=== PATIENT | male | born 1975 | race Caucasian/White ===

== ENCOUNTER 2018-04-21 17:49 | Inpatient (IN) | payer SELFPAY ==
[~2018-04-21] VITALS: Ht 182.9 cm; Wt 161.3 kg
--- NOTE | 2018-04-21 17:51 | ED.ADGEN ---
Past History Past Medical History: A-Fib, Anxiety, CAD, CHF, COPD, Depression, Diabetes, Hypertension Past Surgical History: Other Smoking: Cigarettes Adult General Chief Complaint Chief Complaint ".. I ve been off my meds about a week.. I have CHF.. and I ve gotten really short of breath.. I just moved down here to start my life over after 22 yrs. of marriage.. and now .. ".. .I really fluid over loaded..." HPI HPI Patient is a 42 year old male who presents with above hx and complaints dyspnea , edema, fatigue. Pt. has long hx of CHF, DM, HTN, COPD, continue tobacco use. Pt. recent moved to [facility] from [facility]. Pt. states he is unable to walk across the room with out marked dyspnea. Pt. has had not followed up with physician since arrival to [facility]. No specific ill contacts. No hx immunosuppression. Review of Systems Review of Systems Constitutional: Denies fever or chills [] Eyes: Denies change in visual acuity, redness, or eye pain [] HENT: Denies nasal congestion or sore throat [] Respiratory: Complaints cough and shortness of breath [] Cardiovascular: No additional information not addressed in HPI [] GI: Denies abdominal pain, nausea, vomiting, bloody stools or diarrhea [] : Denies dysuria or hematuria [] Musculoskeletal: Denies back pain or joint pain [] Integument: Denies rash or skin lesions [] Neurologic: Denies headache, focal weakness or sensory changes [] Endocrine: Denies polyuria or polydipsia [] All other systems were reviewed and found to be within normal limits, except as documented in this note. Family History Family History DM Current Medications Current Medications Current Medications Medications (Trade) Dose Ordered Sig/Mert Start Time Stop Time Status Last Admin Dose Admin Albuterol/ Ipratropium (Duoneb) 3 ml STK-MED ONCE 04/21/18 19:06 04/21/18 19:07 DC Aspirin (Children'S Aspirin) 324 mg 1X ONCE 04/21/18 18:00 04/21/18 18:03 DC 04/21/18 18:20 324 MG Enoxaparin Sodium (Lovenox 150mg Syringe) 150 mg Q12H 04/21/18 18:45 04/21/18 20:26 DC 04/21/18 18:55 150 MG Furosemide (Lasix) 40 mg 1X ONCE 04/21/18 18:00 04/21/18 18:03 DC 04/21/18 18:20 40 MG Metoprolol Tartrate (Lopressor Vial) 5 mg 1X ONCE 04/21/18 18:45 04/21/18 18:46 DC 04/21/18 18:53 5 MG See Med. List- for home meds. Allergies Allergies Allergies Coded Allergies Type Severity Reaction Last Updated Verified ampicillin Allergy Intermediate 04/21/18 Yes ketorolac Allergy Intermediate 04/21/18 Yes PCN- rash, Toradol Physical Exam Physical Exam Constitutional: Moderately acute distress, non-toxic appearance. [] HENT: Normocephalic, atraumatic, bilateral external ears normal, oropharynx moist, no oral exudates, nose normal. [] Eyes: PERRLA, EOMI, conjunctiva normal, no discharge. [] Neck: Normal range of motion, no tenderness, supple, no stridor. [] JVD at setting position Cardiovascular:Tachycardia Heart rate, ill regular rate and rhythm, no murmur [ ]PMI to Lt. Lungs & Thorax: Bilateral breath sounds equal at apex with scattered wheezes and basilar crackles on auscultation [] Abdomen: Bowel sounds normal, soft, no tenderness, no masses, no pulsatile masses. [] Obese. Scar. Skin: Warm, dry, no erythema, no rash. Leg scars. -burn scaring. Back: No tenderness, no CVA tenderness. [] Extremities: No tenderness, no cyanosis, no clubbing, ROM intact, 2+ edema mid kaminski. [] Scar 's on legs from skaggs age 5. Neurologic: Alert and oriented X 3, normal motor function, normal sensory function, no focal deficits noted. [] Psychologic: Affect anxious, judgement normal, mood normal. [] Current Patient Data Vital Signs Vital Signs Date Time Temp Pulse Resp B/P (MAP) Pulse Ox O2 Delivery O2 Flow Rate FiO2 04/21/18 20:05 148 28 178/119 (138) 95 Room Air Lab Results Laboratory Tests Test 04/21/18 18:05 04/21/18 19:00 White Blood Count 7.8 x10^3/uL (4.0-11.0) Red Blood Count 4.63 x10^6/uL (4.30-5.70) Hemoglobin 11.7 g/dL (13.0-17.5) L Hematocrit 36.5 % (39.0-53.0) L Mean Corpuscular Volume 79 fL (79-100) Mean Corpuscular Hemoglobin 25 pg (25-35) Mean Corpuscular Hemoglobin Concent 32 g/dL (31-37) Red Cell Distribution Width 18.7 % (11.5-14.5) H Platelet Count 198 x10^3/uL (140-400) Neutrophils (%) (Auto) 71 % (31-73) Lymphocytes (%) (Auto) 19 % (24-48) L Monocytes (%) (Auto) 8 % (0-9) Eosinophils (%) (Auto) 1 % (0-3) Basophils (%) (Auto) 1 % (0-3) Neutrophils # (Auto) 5.5 x10^3uL (1.8-7.7) Lymphocytes # (Auto) 1.5 x10^3/uL (1.0-4.8) Monocytes # (Auto) 0.6 x10^3/uL (0.0-1.1) Eosinophils # (Auto) 0.1 x10^3/uL (0.0-0.7) Basophils # (Auto) 0.0 x10^3/uL (0.0-0.2) Prothrombin Time 12.7 SEC (9.4-11.4) H Prothrombin Time INR 1.2 (0.9-1.1) H PTT 26 SEC (23-33) D-Dimer (Juana) 0.96 mg/L (0.00-0.50) H Sodium Level 137 mmol/L (136-145) Potassium Level 3.7 mmol/L (3.5-5.1) Chloride Level 102 mmol/L (98-107) Carbon Dioxide Level 31 mmol/L (21-32) Anion Gap 4 (6-14) L Blood Urea Nitrogen 12 mg/dL (8-26) Creatinine 1.0 mg/dL (0.7-1.3) Estimated GFR (Cockcroft-Gault) 81.2 Glucose Level 223 mg/dL (70-99) H Calcium Level 8.1 mg/dL (8.5-10.1) L Magnesium Level 1.8 mg/dL (1.8-2.4) Total Bilirubin 0.7 mg/dL (0.2-1.0) Direct Bilirubin 0.2 mg/dL (0.0-0.2) Aspartate Amino Transferase (AST) 20 U/L (15-37) Alanine Aminotransferase (ALT) 14 U/L (16-63) L Alkaline Phosphatase 90 U/L (46-116) Creatine Kinase 46 U/L (39-308) Creatine Kinase MB (Mass) 1.7 ng/mL (0.0-3.6) Creatine Kinase MB Relative Index 3.7 % (0-4) Troponin I Quantitative 0.023 ng/mL (0-0.055) ZF-Sxo-Y-Type Natriuretic Peptide 3070 pg/mL (0-124) H Total Protein 6.9 g/dL (6.4-8.2) Albumin 2.9 g/dL (3.4-5.0) L Lipase 54 U/L (73-393) L Urine Collection Type Unknown Urine Color Yellow Urine Clarity Clear Urine pH 5.5 Urine Specific [place] 1.010 Urine Protein Neg (NEG-TRACE) Urine Glucose (UA) Neg mg/dL (NEG) Urine Ketones (Stick) Neg mg/dL (NEG) Urine Blood Neg (NEG) Urine Nitrite Neg (NEG) Urine Bilirubin Neg (NEG) Urine Urobilinogen Dipstick 0.2 mg/dL (0.2 mg/dL) Urine Leukocyte Esterase Neg (NEG) Urine RBC 1-2 /HPF (0-2) Urine WBC 1-4 /HPF (0-4) Urine Squamous Epithelial Cells Mod /LPF Urine Bacteria 0 /HPF (0-FEW) Urine Hyaline Casts Mod /HPF Urine Mucus Mod /LPF Urine Opiates Screen Neg (NEG) Urine Methadone Screen Neg (NEG) Urine Barbiturates Neg (NEG) Urine Phencyclidine Screen Neg (NEG) Urine Amphetamine/Methamphetamine Neg (NEG) Urine Benzodiazepines Screen Neg (NEG) Urine Cocaine Screen Neg (NEG) Urine Cannabinoids Screen Pos (NEG) Urine Ethyl Alcohol Neg (NEG) EKG EKG My interpretation of EKG shows Afib with rapid Vent. response a Vent. rate of 171. [] Radiology/Procedures Radiology/Procedures My interpretation of chest x-ray shows cardiomegaly. Increased cephalization. Consistent with CHF.[] Course & Med Decision Making Course & Med Decision Making Pertinent Labs and Imaging studies reviewed. (See chart for details) Discussed presentation, testing and tx. plan with Dr. Jasso- will admit for further tx. and evaluation [] Final Impression Final Impression 1. Dyspnea[] 2. Hx CHF- BNP 3070 3. Hx. DM-223 4. Hx. Depression 5. Hx. HTN- accelerated 6. Tobacco Use 7. Afib- with rapid Vent. Response 8. Anemia- 11.7 9. Malnutrition Alb- 2.9 10. COPD exacerbation 11. Elevated D-dimer Dragon Disclaimer Dragon Disclaimer This electronic medical record was generated, in whole or in part, using a voice recognition dictation system. DAMARIS VELÁSQUEZ MD Apr 21, 2018 17:51
[2018-04-21] MEDS ORDERED: FUROSEMIDE 40 MG/4 ML VIAL IVP ONE (18:00)
[2018-04-21] MEDS ORDERED: ASPIRIN 81 MG TAB.CHEW PO ONE (18:00)
[2018-04-21 18:30] LABS: BASO % 1 % (0-3); EOS # 0.1 x10^3/uL (0.0-0.7); EOS % 1 % (0-3); HEMATOCRIT 36.5 % (39.0-53.0); HEMOGLOBIN 11.7 g/dL (13.0-17.5); LYMPH # 1.5 x10^3/uL (1.0-4.8); LYMPH % 19 % (24-48); MEAN CORPUSCULAR HEMOGLOBIN 25 pg (25-35); MEAN CORPUSCULAR HGB CONC 32 g/dL (31-37); MEAN CORPUSCULAR VOLUME 79 fL (79-100); MONO # 0.6 x10^3/uL (0.0-1.1); MONO % 8 % (0-9); NEUT # 5.5 x10^3uL (1.8-7.7); NEUT % 71 % (31-73); PLATELET COUNT 198 x10^3/uL (140-400); RED BLOOD COUNT 4.63 x10^6/uL (4.30-5.70); RED CELL DISTRIBUTION WIDTH 18.7 % (11.5-14.5); WHITE BLOOD COUNT 7.8 x10^3/uL (4.0-11.0)
--- NOTE | 2018-04-21 18:34 | EKG ---
[address] [address] Test Date: 2018-04-21 Test Time: 18:29:24 Pat Name: OLVIN PIERRE Department: Room: Gender: M Ssis Architect: [facility] : 1975 Requested By: DAMARIS VELÁSQUEZ Order Number: [id number] Reading MD: Lars Ascencio MD Measurements Intervals [place] Rate: 171 P: VT: QRS: -26 QRSD: 98 T: 125 QT: 292 QTc: 495 Interpretive Statements NON-SPECIFIC ST/T CHANGES ATRIAL FIBRILLATION WITH RVR Electronically Signed On 04-23-2018 16:09:28 CDT by Lars Ascencio MD
[2018-04-21] MEDS ORDERED: METOPROLOL TARTRATE 5 MG/5 ML VIAL. IV ONE ×2 (18:45→20:30)
[2018-04-21] MEDS ORDERED: ENOXAPARIN ** NOTE DOSE ** SYRINGE SQ SCH (18:45)
[2018-04-21 18:56] LABS: ALBUMIN 2.9 g/dL (3.4-5.0); CALCIUM 8.1 mg/dL (8.5-10.1); DIRECT BILIRUBIN 0.2 mg/dL (0.0-0.2); GFR 81.2; MAGNESIUM 1.8 mg/dL (1.8-2.4); POTASSIUM 3.7 mmol/L (3.5-5.1); TOTAL BILIRUBIN 0.7 mg/dL (0.2-1.0); TOTAL PROTEIN 6.9 g/dL (6.4-8.2)
[2018-04-21] MEDS ORDERED: IPRATRPIUM/ALBUTEROL 0.5/2.5MG 3 ML NEBU. ONE (19:06)
[2018-04-21] MEDS ORDERED: IPRATRPIUM/ALBUTEROL 0.5/2.5MG 3 ML NEBU. NEB ONE (19:15)
[2018-04-21 19:57] LABS: BACTERIA,URINE 0 /HPF (0-FEW); BILIRUBIN,URINE NEG (NEG); CLARITY,URINE CLEAR; COLOR,URINE YELLOW; GLUCOSE,URINE NEG (NEG); NITRITE,URINE NEG (NEG); UROBILINOGEN,URINE 0.2 mg/dL (0.2 mg/dL)
[2018-04-21 19:58] LABS: HYALINE CASTS, URINE MOD /HPF; SQUAMOUS EPITHELIAL CELL,UR MOD /LPF
[2018-04-21 20:21] LABS: AMPHETAMINE/METHAMPHETAMINE NEG (NEG); BARBITURATES NEG (NEG); BENZODIAZEPINES NEG (NEG); CANNABINOIDS POS (NEG); COCAINE NEG (NEG); METHADONE NEG (NEG); OPIATES NEG (NEG); PHENCYCLIDINE NEG (NEG)
[2018-04-21] MEDS: IPRATRPIUM/ALBUTEROL 0.5/2.5MG 3 ML NEBU. NEB SCH (21:00)
[2018-04-21 21:12] VITALS: BP 176/103
[2018-04-21] MEDS ORDERED: INSU100I11 SQ (21:30)
[2018-04-21] MEDS ORDERED: LISI10TA2 PO (21:30)
[2018-04-21] MEDS ORDERED: ATOR40TA59 PO (21:30)
[2018-04-21] MEDS ORDERED: ASPI81TA50 PO (21:30)
[2018-04-21] MEDS ORDERED: AMIT25TA PO (21:30)
[2018-04-21] MEDS ORDERED: SPIR25TA5 PO (21:30)
[2018-04-21] MEDS ORDERED: DILT180C29 PO (21:30)
[2018-04-21] MEDS ORDERED: ASPI-612 PO (21:30)
[2018-04-21] MEDS ORDERED: INSU100I13 SQ (21:30)
[2018-04-21] MEDS ORDERED: SERT25TA PO (21:30)
[2018-04-21] MEDS ORDERED: BUME2TAB PO (21:30)
[2018-04-21] MEDS ORDERED: METF-550 PO (21:30)
[2018-04-21] MEDS ORDERED: METO100T5 PO (21:30)
[2018-04-21] MEDS ORDERED: TRAZ50TA15 PO (21:30)
[2018-04-21] MEDS ORDERED: DEXTROSE 50% 25 GM / 50ML DISP.SYRIN. IV PRN (22:00)
[2018-04-21] MEDS ORDERED: DIGOXIN IV 500 MCG/2 ML AMPUL. IV ONE (22:00)
[2018-04-21] MEDS ORDERED: traZODone 50 MG TABLET. PO PRN (22:15)
[2018-04-21] MEDS: ATORVASTATIN CALCIUM 20 MG TABLET PO SCH (22:21)
[2018-04-21] MEDS: AMITRIPTYLINE HCL 25 MG TABLET PO SCH (22:21)
[2018-04-21] MEDS: INSULIN GLARGINE 300 UNITS/3 ML INSULN.PEN. SQ SCH (22:46)
[2018-04-21 23:12] VITALS: BP 147/75
[2018-04-21 23:22] VITALS: BP 155/112
[2018-04-21] MEDS ORDERED: METOPROLOL SUCC 24HR ER 50 MG TAB.ER.24H. PO ONE (23:34)
[2018-04-22] VITALS (18 sets, daily range): BP systolic 98–146; BP diastolic 61–101
[2018-04-22] MEDS ORDERED: PNEUMOCOCCAL VAX SCREEN. MC ONE
[2018-04-22] MEDS ORDERED: dilTIAZem VIAL 125 MG in IV DEXTROSE 5% 100 ML IV PRN (02:00)
[2018-04-22] MEDS ORDERED: dilTIAZem 25 MG/5 ML VIAL IVP ONE (02:00)
[2018-04-22] MEDS ORDERED: dilTIAZem VIAL 125 MG in IV NORMAL SALINE 100ML 100 ML IV PRN (02:00)
--- NOTE | 2018-04-22 02:44 | RAD ---
Chest PA and lateral: Reason for examination: Short of breath. COPD. Asthma. Congestive heart failure. Smoker. The heart size is normal. Mediastinum is unremarkable. Lung mireles show mild hazy increased density in the right lower lobe. Some mild infiltrates cannot be excluded. No acute bony abnormalities are seen. Impression: Mild haziness suggested in the right lower lobe and some early infiltrates cannot be excluded. Electronically signed by: Fiona Lomas MD (04/22/2018 2:40 AM) [facility] [place]
[2018-04-22] MEDS: IPRATRPIUM/ALBUTEROL 0.5/2.5MG 3 ML NEBU. NEB SCH ×2 (05:46→10:13)
[2018-04-22 05:57] LABS: BASO # 0.1 x10^3/uL (0.0-0.2); BASO % 1 % (0-3); EOS # 0.1 x10^3/uL (0.0-0.7); EOS % 2 % (0-3); HEMATOCRIT 35.8 % (39.0-53.0); HEMOGLOBIN 11.2 g/dL (13.0-17.5); LYMPH # 1.9 x10^3/uL (1.0-4.8); LYMPH % 23 % (24-48); MEAN CORPUSCULAR HEMOGLOBIN 25 pg (25-35); MEAN CORPUSCULAR HGB CONC 31 g/dL (31-37); MEAN CORPUSCULAR VOLUME 80 fL (79-100); MONO # 0.9 x10^3/uL (0.0-1.1); MONO % 11 % (0-9); NEUT # 5.1 x10^3uL (1.8-7.7); NEUT % 63 % (31-73); PLATELET COUNT 173 x10^3/uL (140-400); RED BLOOD COUNT 4.46 x10^6/uL (4.30-5.70); RED CELL DISTRIBUTION WIDTH 18.5 % (11.5-14.5); WHITE BLOOD COUNT 8.1 x10^3/uL (4.0-11.0)
[2018-04-22] MEDS ORDERED: FUROSEMIDE 40 MG TABLET PO SCH (06:00)
[2018-04-22 06:05] LABS: CALCIUM 8.4 mg/dL (8.5-10.1); CREATININE 0.9 mg/dL (0.7-1.3); GFR 91.7; POTASSIUM 3.4 mmol/L (3.5-5.1)
[2018-04-22] MEDS ORDERED: ENOXAPARIN ** NOTE DOSE ** SYRINGE SQ SCH (07:00)
[2018-04-22] MEDS ORDERED: BUMETANIDE 1 MG TABLET PO SCH ×2 (07:30→08:00)
[2018-04-22] MEDS: SPIRONOLACTONE 25 MG TABLET PO SCH (07:41)
[2018-04-22] MEDS: LISINOPRIL 10 MG TABLET PO SCH (07:41)
[2018-04-22] MEDS: ASPIRIN 81 MG TAB.CHEW PO SCH (07:41)
[2018-04-22] MEDS: metFORMIN XR 500 MG TAB.ER.24H PO SCH (07:42)
[2018-04-22] MEDS: SERTRALINE 25 MG TABLET. PO SCH (07:42)
[2018-04-22] MEDS ORDERED: POTASSIUM CHLORIDE 20 MEQ TABLET.ER. PO ONE ×2 (07:43→11:00)
[2018-04-22] MEDS: POTASSIUM CHLORIDE 20 MEQ TABLET.ER. PO SCH ×2 (07:44→20:05)
[2018-04-22] MEDS: INSULIN LISPRO 300 UNITS/3 ML INSULN.PEN. SQ SCH ×3 (08:00→17:29)
[2018-04-22] MEDS ORDERED: METOPROLOL SUCC 24HR ER 50 MG TAB.ER.24H. PO SCH (09:00)
[2018-04-22] MEDS ORDERED: PNEUMOC CONJ VACC 23-VALENT 0.5 ML VIAL. VAX IM ONE (09:00)
[2018-04-22] MEDS ORDERED: METOPROLOL TART IMMED RELEASE 50 MG TABLET PO SCH (09:00)
[2018-04-22] MEDS ORDERED: NON FORMULARY ITEM (Aspirin (Aspir-Low) 81 MG) PO SCH (09:00)
--- NOTE | 2018-04-22 10:34 | PDOC2 ---
CONSULT Date of Admission DATE: 04/22/18 TIME: 10:25 Reason for Consult: CHF, atrial fib Problem List Problems Medical Problems: (1) Dyspnea Status: Acute History of Present Illness Mr Soto is a 42 year old male who presented to the ED with complaints of dyspnea significantly increased over the last 2 weeks. He was apparently recently hospitalized in [place] and reports being diagnosed with afib, cardiomyopathy with EF 30% and heart failure. He states that on discharge he immediately moved here and has never started any of the medications which were all apparently new for him. He says that over the last 2 weeks he has had increased swelling in his abdomen and legs and increased dyspnea on exertion. He is now unable to walk from room to room in the house without shortness of breath. He reports sleeping on 1-2 pillows normally and denies any orthopnea or PND. He denies any chest pain, lightheadedness or syncope. Cardiovascular: AFIB, CHF, HTN, hyperipidemia Psych: Depression Infectious disease: Other (history of necrotizing fasciatus) Endocrine: Diabetes Past Surgical History skin grafting due to childhood skaggs on legs leg surgery secondary to necrotizing fasciatus Family History coronary artery disease in mother and on mothers side Social History 1/2 ppd smoke, denies significant ETOH or illicit drugs however UDS is positive for marijuana and nursing reports he admitted history of methamphetamine use. Last use reportedly 6 months ago. Recently . Current Medications Current Medications Aspirin (Children'S Aspirin) 324 mg 1X ONCE PO Last administered on 04/21/18at 18:20; Start 04/21/18 at 18:00; Stop 04/21/18 at 18:03; Status DC Furosemide (Lasix) 40 mg 1X ONCE IVP Last administered on 04/21/18 18:20; Start 04/21/18 at 18:00; Stop 04/21/18 at 18:03; Status DC Enoxaparin Sodium (Lovenox 150mg Syringe) 150 mg Q12H SQ Last administered on 18:55; Start 04/21/18 at 18:45; Stop 04/21/18 at 20:26; Status DC Metoprolol Tartrate (Lopressor Vial) 5 mg 1X ONCE IV Last administered on 04/21at 18:53; Start 04/21/18 at 18:45; Stop 04/21/18 at 18:46; Status DC Albuterol/ Ipratropium (Duoneb) 3 ml 1X ONCE NEB Last administered on at 19:11; Start 04/21/18 at 19:15; Stop 04/21/18 at 19:16; Status DC Albuterol/ Ipratropium (Duoneb) 3 ml STK-MED ONCE .ROUTE ; Start 04/21/18 at 19: 06; Stop 04/21/18 at 19:07; Status DC Enoxaparin Sodium (Lovenox 150mg Syringe) 150 mg Q12H SQ Last administered on at 06:38; Start 04/22/18 at 07:00 Aspirin (Children'S Aspirin) 81 mg DAILY PO Last administered on 04/22/18at 07: 41; Start 04/22/18 at 09:00 Metoprolol Tartrate (Lopressor) 100 mg DAILY PO ; Start 04/22/18 at 09:00; Stop 04/22/18 at 09:00; Status DC Furosemide (Lasix) 40 mg DAILY06 PO Last administered on 04/22/18at 05:46; Start 04/22/18 at 06:00 Bumetanide (Bumex) 2 mg DAILY08 PO ; Start 04/22/18 at 08:00; Stop 04/22/18 at 08:00; Status DC Albuterol/ Ipratropium (Duoneb) 3 ml QID NEB Last administered on 04/22/18at 10: 13; Start 04/21/18 at 21:00 Metoprolol Tartrate (Lopressor Vial) 5 mg 1X ONCE IV Last administered on 04/21at 20:23; Start 04/21/18 at 20:30; Stop 04/21/18 at 20:31; Status DC Insulin Glargine (Lantus) 35 units QHS SQ Last administered on 04/21/18at 22:46 ; Start 04/21/18 at 22:00 Lisinopril (Prinivil) 10 mg DAILY PO Last administered on 04/22/18at 07:41; Start 04/22/18 at 09:00 Amitriptyline HCl (Elavil) 25 mg QHS PO Last administered on 04/21/18at 22:21; Start 04/21/18 at 22:00 Non-Formulary Medication (Aspirin (Aspir-Low)) 81 mg DAILY PO ; Start 04/22/18 at 09:00; Stop 04/22/18 at 09:00; Status DC Atorvastatin Calcium (Lipitor) 40 mg QHS PO Last administered on 04/21/18at 22: 21; Start 04/21/18 at 22:00 Bumetanide (Bumex) 2 mg BID@0730,1630 PO Last administered on 04/22/18at 07:42; Start 04/22/18 at 07:30 Diltiazem HCl (Cardizem 24hr Cd) 360 mg DAILY PO Last administered on at 07:43; Start 04/22/18 at 09:00 Metformin HCl (Glucophage Xr) 750 mg DAILYWBKFT PO Last administered on at 07:42; Start 04/22/18 at 08:00 Metoprolol Succinate (Toprol Xl) 100 mg DAILY PO Last administered on at 07:42; Start 04/22/18 at 09:00 Sertraline HCl (Zoloft) 25 mg DAILY PO Last administered on 04/22/18at 07:42; Start 04/22/18 at 09:00 Spironolactone (Aldactone) 25 mg DAILY PO Last administered on 04/22/18at 07:41 ; Start 04/22/18 at 09:00 Trazodone HCl (Desyrel) 50 mg PRN QHS PRN PO INSOMNIA; Start 04/21/18 at 22:15 Insulin Human Lispro (HumaLOG) 0-7 UNITS TIDWMEALS SQ ; Start 04/22/18 at 08:00 Dextrose 12.5 gm PRN Q15MIN PRN IV SEE COMMENTS; Start 04/21/18 at 22:00 Digoxin (Lanoxin) 500 mcg 1X ONCE IV Last administered on 04/21/18at 22:23; Start 04/21/18 at 22:00; Stop 04/21/18 at 22:01; Status DC Metoprolol Succinate (Toprol Xl) 50 mg STK-MED ONCE PO ; Start 04/21/18 at 23:34 ; Stop 04/21/18 at 23:35; Status DC Diltiazem HCl (Cardizem 24hr Cd) 180 mg STK-MED ONCE PO ; Start 04/21/18 at 23: 40; Stop 04/21/18 at 23:42; Status DC Pneumococcal Polyvalent Vaccine (Do NOT chart on this entry -- for MONITORING) 1 each 1X ONCE MC ; Start 04/22/18 at 00:00; Stop 04/22/18 at 00:01; Status UNV Pneumococcal Polyvalent Vaccine (Pneumovax 23) 0.5 ml ONCE ONCE VAX IM ; Start 04/22/18 at 09:00; Stop 04/22/18 at 09:02; Status DC Diltiazem HCl (Cardizem) 41 mg 1X ONCE IVP Last administered on 04/22/18at 02: 55; Start 04/22/18 at 02:00; Stop 04/22/18 at 02:01; Status DC Diltiazem HCl 125 mg/Dextrose 125 ml @ 5 mls/hr CONT PRN IV SEE I/O RECORD; Start 04/22/18 at 02:00; Stop 04/22/18 at 02:00; Status DC Diltiazem HCl 125 mg/Sodium Chloride 125 ml @ 5 mls/hr CONT PRN IV HEART RATE; Start 04/22/18 at 02:00 Potassium Chloride (Klor-Con) 40 meq DAILYWBKFT PO Last administered on at 07:44; Start 04/22/18 at 08:00 Potassium Chloride (Klor-Con) 40 meq 1X ONCE PO ; Start 04/22/18 at 11:00; Stop 04/22/18 at 11:01 Potassium Chloride (Klor-Con) 20 meq STK-MED ONCE PO ; Start 04/22/18 at 07:43; Stop 04/22/18 at 07:44; Status DC Active Scripts Active Reported Metformin HCl ER (Metformin HCl) 500 Mg [id number] 750 Mg PO DAILY Atorvastatin Calcium 40 Mg Tablet 40 Mg PO QHS Lisinopril 10 Mg Tablet 10 Mg PO DAILY Diltiazem 24HR Cd (Diltiazem Hcl) 180 Mg Cap.er.24h 360 Mg PO DAILY Bumetanide 2 Mg Tablet 2 Mg PO BID@0730,1630 Spironolactone 25 Mg Tablet 25 Mg PO DAILY Toprol Xl (Metoprolol Succinate) 100 Mg Tab.er.24h 100 Mg PO DAILY Aspir-Low (Aspirin) 81 Mg Tablet.dr 81 Mg PO DAILY Aspirin Ec (Aspirin) 81 Mg Tablet.dr 81 Mg PO Zoloft (Sertraline Hcl) 25 Mg Tablet 25 Mg PO DAILY Trazodone Hcl 50 Mg Tablet 50 Mg PO PRN QHS PRN Amitriptyline Hcl 25 Mg Tablet 25 Mg PO QHS Humalog (Insulin Lispro) 100 Unit/1 Ml Insuln.pen Unit SQ TIDAC Lantus Solostar (Insulin Glargine,Hum.rec.anlog) 100 Unit/1 Ml Insuln.pen 35 Unit SQ QHS Allergies: Coded Allergies: ampicillin (Verified Allergy, Intermediate, 04/21/18) ketorolac (Verified Allergy, Intermediate, 04/21/18) Review of System as per HPI General: Alert, Oriented X3, Cooperative, No acute distress HEENT: Atraumatic, Other (+JVD) Lungs: Other (decreased with occ crackles in bilateral bases) Heart: Regular rate, Normal S1, Normal S2, Other (distant heart sounds, no obvious murmurs, no gallops, clicks or rubs) Extremities: Other (+3 edema bilateral lower extremities, skin discoloration secondary to prior skaggs and skin grafting, + pulses) Neuro: Normal speech, Strength at 5/5 X4 ext Psych/Mental Status: Mental status NL, Mood NL VITALS Vital Signs Date Time Temp Pulse Resp B/P (MAP) Pulse Ox O2 Delivery O2 Flow Rate FiO2 04/22/18 10:13 98 Nasal Cannula 3.0 04/22/18 08:08 91 20 138/80 (99) 04/22/18 02:00 98.3 Labs Laboratory Tests Test 04/21/18 18:05 04/21/18 19:00 04/21/18 21:28 04/22/18 00:10 White Blood Count 7.8 x10^3/uL (4.0-11.0) Red Blood Count 4.63 x10^6/uL (4.30-5.70) Hemoglobin 11.7 g/dL (13.0-17.5) Hematocrit 36.5 % (39.0-53.0) Mean Corpuscular Volume 79 fL (79-100) Mean Corpuscular Hemoglobin 25 pg (25-35) Mean Corpuscular Hemoglobin Concent 32 g/dL (31-37) Red Cell Distribution Width 18.7 % (11.5-14.5) Platelet Count 198 x10^3/uL (140-400) Neutrophils (%) (Auto) 71 % (31-73) Lymphocytes (%) (Auto) 19 % (24-48) Monocytes (%) (Auto) 8 % (0-9) Eosinophils (%) (Auto) 1 % (0-3) Basophils (%) (Auto) 1 % (0-3) Neutrophils # (Auto) 5.5 x10^3uL (1.8-7.7) Lymphocytes # (Auto) 1.5 x10^3/uL (1.0-4.8) Monocytes # (Auto) 0.6 x10^3/uL (0.0-1.1) Eosinophils # (Auto) 0.1 x10^3/uL (0.0-0.7) Basophils # (Auto) 0.0 x10^3/uL (0.0-0.2) Prothrombin Time 12.7 SEC (9.4-11.4) Prothromb Time International Ratio 1.2 (0.9-1.1) Activated Partial Thromboplast Time 26 SEC (23-33) D-Dimer (Juana) 0.96 mg/L (0.00-0.50) Sodium Level 137 mmol/L (136-145) Potassium Level 3.7 mmol/L (3.5-5.1) Chloride Level 102 mmol/L (98-107) Carbon Dioxide Level 31 mmol/L (21-32) Anion Gap 4 (6-14) Blood Urea Nitrogen 12 mg/dL (8-26) Creatinine 1.0 mg/dL (0.7-1.3) Estimated GFR (Cockcroft-Gault) 81.2 Glucose Level 223 mg/dL (70-99) Calcium Level 8.1 mg/dL (8.5-10.1) Magnesium Level 1.8 mg/dL (1.8-2.4) Total Bilirubin 0.7 mg/dL (0.2-1.0) Direct Bilirubin 0.2 mg/dL (0.0-0.2) Aspartate Amino Transf (AST/SGOT) 20 U/L (15-37) Alanine Aminotransferase (ALT/SGPT) 14 U/L (16-63) Alkaline Phosphatase 90 U/L (46-116) Creatine Kinase 46 U/L (39-308) Creatine Kinase MB (Mass) 1.7 ng/mL (0.0-3.6) Creatine Kinase MB Relative Index 3.7 % (0-4) Troponin I Quantitative 0.023 ng/mL (0-0.055) 0.022 ng/mL (0-0.055) RQ-Kxh-Z-Type Natriuretic Peptide 3070 pg/mL (0-124) Total Protein 6.9 g/dL (6.4-8.2) Albumin 2.9 g/dL (3.4-5.0) Lipase 54 U/L (73-393) Urine Collection Type Unknown Urine Color Yellow Urine Clarity Clear Urine pH 5.5 Urine Specific [place] 1.010 Urine Protein Neg (NEG-TRACE) Urine Glucose (UA) Neg mg/dL (NEG) Urine Ketones (Stick) Neg mg/dL (NEG) Urine Blood Neg (NEG) Urine Nitrite Neg (NEG) Urine Bilirubin Neg (NEG) Urine Urobilinogen Dipstick 0.2 mg/dL (0.2 mg/dL) Urine Leukocyte Esterase Neg (NEG) Urine RBC 1-2 /HPF (0-2) Urine WBC 1-4 /HPF (0-4) Urine Squamous Epithelial Cells Mod /LPF Urine Bacteria 0 /HPF (0-FEW) Urine Hyaline Casts Mod /HPF Urine Mucus Mod /LPF Urine Opiates Screen Neg (NEG) Urine Methadone Screen Neg (NEG) Urine Barbiturates Neg (NEG) Urine Phencyclidine Screen Neg (NEG) Urine Amphetamine/Methamphetamine Neg (NEG) Urine Benzodiazepines Screen Neg (NEG) Urine Cocaine Screen Neg (NEG) Urine Cannabinoids Screen Pos (NEG) Urine Ethyl Alcohol Neg (NEG) Glucose (Fingerstick) 175 mg/dL (70-99) Test 04/22/18 05:32 White Blood Count 8.1 x10^3/uL (4.0-11.0) Red Blood Count 4.46 x10^6/uL (4.30-5.70) Hemoglobin 11.2 g/dL (13.0-17.5) Hematocrit 35.8 % (39.0-53.0) Mean Corpuscular Volume 80 fL (79-100) Mean Corpuscular Hemoglobin 25 pg (25-35) Mean Corpuscular Hemoglobin Concent 31 g/dL (31-37) Red Cell Distribution Width 18.5 % (11.5-14.5) Platelet Count 173 x10^3/uL (140-400) Neutrophils (%) (Auto) 63 % (31-73) Lymphocytes (%) (Auto) 23 % (24-48) Monocytes (%) (Auto) 11 % (0-9) Eosinophils (%) (Auto) 2 % (0-3) Basophils (%) (Auto) 1 % (0-3) Neutrophils # (Auto) 5.1 x10^3uL (1.8-7.7) Lymphocytes # (Auto) 1.9 x10^3/uL (1.0-4.8) Monocytes # (Auto) 0.9 x10^3/uL (0.0-1.1) Eosinophils # (Auto) 0.1 x10^3/uL (0.0-0.7) Basophils # (Auto) 0.1 x10^3/uL (0.0-0.2) Sodium Level 140 mmol/L (136-145) Potassium Level 3.4 mmol/L (3.5-5.1) Chloride Level 103 mmol/L (98-107) Carbon Dioxide Level 33 mmol/L (21-32) Anion Gap 4 (6-14) Blood Urea Nitrogen 15 mg/dL (8-26) Creatinine 0.9 mg/dL (0.7-1.3) Estimated GFR (Cockcroft-Gault) 91.7 Glucose Level 148 mg/dL (70-99) Calcium Level 8.4 mg/dL (8.5-10.1) Images EKG - atrial fibrillation with rapid ventricular response, LAFB, non specific st /t abn CXR - Impression: Mild haziness suggested in the right lower lobe and some early infiltrates cannot be excluded. Assessment/Plan 1. atrial fibrillation with RVR 2. presumed acute on chronic systolic heart failure - reported EF 30% 3. hypertension 4. hyperlipidemia 5. hypokalemia 6. morbid obesity 7. tobaccoism Suggest rate control. Eliquis for anticoagulation/stroke prophylaxis. Request records from recent hospitalization in [place]. Will need cath vs MPI if not done in [place] and if EF decreased as reported and will plan to discuss this further in follow up as outpatient when acute decompensation resolved. Will resume home meds with adjusted doses as he reports having never started them. Check lipids. Smoking cessation and weight reduction strongly recommended. In light of presumed systolic dysfunction will discontinue cardizem and increase Metoprolol for rate control. NEHA JOHNSON TERMITE TECHNICIAN Apr 22, 2018 10:34
--- NOTE | 2018-04-22 12:36 | RAD ---
Bilateral lower extremity venous ultrasound, 04/22/2018: History: Elevated d-dimer, shortness of breath, leg edema Duplex evaluation of the deep veins in the lower extremities was performed including grayscale, color-flow and spectral Doppler analysis. The femoral and popliteal veins demonstrate normal compressibility and normal responses to distal augmentation maneuvers. Color imaging of those vessels shows no evidence of intraluminal clot. The visualized deep veins in both calves are patent. IMPRESSION: There is no sonographic evidence of deep vein thrombosis in either lower extremity. Electronically signed by: Abraham Farley MD (04/22/2018 12:33 PM) [facility]
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
[2018-04-22] MEDS: FUROSEMIDE 40 MG/4 ML VIAL IVP SCH (14:00)
--- NOTE | 2018-04-22 17:16 | CARD ---
MR#: [id number] Date of Study: 04/22/2018 Ordering Physician: ASHLEIGH DOW, Referring Physician: ASHLEIGH DOW, Tech: JUAN Pisano APPROVED REPORT EXAM: Two-dimensional and M-mode echocardiogram with Doppler and color Doppler. Other Information Quality : AverageHR: 64bpm INDICATION Hypertension/HCVD Congestive Heart Failure 2D DIMENSIONS Left Atrium(2D)5.1 (1.6-4.0cm)IVSd2.0 (0.7-1.1cm) Aortic Root(2D)3.2 (2.0-3.7cm)LVDd4.6 (3.9-5.9cm) LVOT Diameter2.2 (1.8-2.4cm)PWd2.4 (0.7-1.1cm) LVDs3.3 (2.5-4.0cm)FS (%) 29.6 % SV55.9 ml Aortic Valve AoV Peak Aris.107.0cm/sAoV VTI20.1cm AO Peak GR.4.6mmHgLVOT Peak Aris.75.0cm/s LVOT VTI 12.93cmAO Mean GR.2mmHg BERE (VMAX)2.61nw2PLP (VTI)2.53cm2 Mitral Valve MV E Huwmwcua447.5cm/sMV E Peak Gr.33mmHg MV DECEL [id number] A Dhbzuvuy87.1cm/s E/A Ratio3.9 Pulmonary Valve PV Peak Ljdvwpbo83.1cm/sPV Peak Grad.3mmHg Tricuspid Valve TR P. [id number]/sTR Peak Gr.22mmHg LEFT VENTRICLE Technically difficult study. The Left Ventricle is mildly dilated. There is moderate concentric left ventricular hypertrophy. Left ventricle systolic function is mildly impaired. The Ejection Fraction i s estimated at 40%. There is global hypokinesis of the left ventricle. Transmitral Doppler flow patte rn is Grade IV-fixed restrictive diastolic dysfunction. RIGHT VENTRICLE The right ventricle is mildly dilated. The right ventricular systolic function is normal. ATRIA The left atrium is mildly dilated. The right atrium is mildly dilated. The interatrial septum is inta ct with no evidence for an atrial septal defect or patent foramen ovale as noted on 2-D or Doppler im aging. AORTIC VALVE The aortic valve is normal in structure and function. Doppler and Color Flow revealed no significant aortic regurgitation. There is no significant aortic valvular stenosis. There is no aortic valvular v egetation. MITRAL VALVE The mitral valve is thickened but opens well. There is no evidence of mitral valve prolapse. There is no mitral valve stenosis. Doppler and Color-flow revealed trace to mild mitral regurgitation. TRICUSPID VALVE The tricuspid valve leaflets are thickened , but open well. Doppler and Color Flow revealed mild tric uspid regurgitation. There is no tricuspid valve prolapse or vegetation. There is no tricuspid valve stenosis. PULMONIC VALVE The pulmonic valve is not well visualized. Doppler and Color Flow revealed trace pulmonic valvular re gurgitation. There is no pulmonic valvular stenosis. GREAT VESSELS The aortic root is normal in size. The IVC is dilated. The IVC collapses <50% with inspiration. PERICARDIAL EFFUSION There is no pleural effusion. There is no evidence of significant pericardial effusion. Critical Notification Critical Value: No <Conclusion> Technically difficult study. The Left Ventricle is mildly dilated. Left ventricle systolic function is mildly impaired. The Ejection Fraction is estimated at 40%. There is global hypokinesis of the left ventricle. There is moderate concentric left ventricular hypertrophy. The right ventricle is mildly dilated. There is no significant aortic valvular stenosis. Doppler and Color Flow revealed no significant aortic regurgitation. Doppler and Color-flow revealed trace to mild mitral regurgitation. Doppler and Color Flow revealed mild tricuspid regurgitation. Signed by : Francisco Marroquin MD Electronically Approved : 04/22/2018 17:16:07
[2018-04-22 18:32] LABS: CALCIUM 8.1 mg/dL (8.5-10.1); GFR 81.2; POTASSIUM 3.7 mmol/L (3.5-5.1)
--- NOTE | 2018-04-22 18:53 | PN ---
DATE: 04/22/2018 SUBJECTIVE: The patient is sitting slightly propped up in bed and in no apparent distress. On questioning him, he denied any chest pain. He stated that his shortness breath is much improved. His heart rate is much better controlled. He did receive 10 mg of Cardizem and was restarted on his oral medication. PHYSICAL EXAMINATION: GENERAL: By the time I saw him this afternoon, he looked well and was clearly in no apparent respiratory distress. VITAL SIGNS: His heart rate was only 77, blood pressure 137/91, temperature was 98.4, respiratory rate was 18 and oxygen saturation was 95% on 3 liters of oxygen. HEAD, EYES, EARS, NOSE AND THROAT: Normocephalic, atraumatic. NECK: Supple. HEART: Showed normal first and second sounds. No gallop, rub or murmur. CHEST: Shows central trachea, equal bilateral expansion, air entry, vesicular sounds. No crepitation or rhonchi. ABDOMEN: Distended, soft, nontender. NEUROLOGIC: He is awake, alert, responding appropriately. All cranial nerves intact. He moves extremities without difficulty. EXTREMITIES: He has bilateral lower extremity edema. No clubbing or cyanosis. He has scars of previous skin grafting and also excision of necrotizing fasciitis in the inner side of the right thigh. His intake and output were incompletely recorded. LABORATORY DATA: His lab work this morning showed a white cell count of 8100, hemoglobin 11, hematocrit 36, MCV 80 and platelet count of 173,000. His chemistry showed a serum sodium of 140, potassium 3.4, chloride 103, bicarbonate 33, anion gap of 4, BUN 15, creatinine 0.9, estimated GFR was 92 mL per minute, his glucose 148, calcium was 8.4. Have so far 2 sets of cardiac enzymes. He apparently was seen by the Cardiology team, and the tariff supervisor would like to discontinue the Cardizem and put him back on metoprolol. We will continue to monitor his blood sugar and adjust insulin as needed. His fasting lipid profile is still pending at the time of this dictation. He was given multiple doses of potassium as his potassium was low at 3.4. We will repeat his labs tomorrow, and if he remains stable, he can be discharged home to follow cardiology team as an outpatient. ASHLEIGH DOW MD DR: Ana JOB#: [id number] / [id number]
[2018-04-22] MEDS: APIXABAN 5 MG TABLET. PO SCH (20:05)
[2018-04-22] MEDS: ATORVASTATIN CALCIUM 20 MG TABLET PO SCH (20:05)
[2018-04-22] MEDS: INSULIN GLARGINE 300 UNITS/3 ML INSULN.PEN. SQ SCH (20:10)
[2018-04-22] MEDS: AMITRIPTYLINE HCL 25 MG TABLET PO SCH (20:11)
[2018-04-23 00:05] VITALS: BP 123/77
[2018-04-23 02:04] VITALS: BP 113/82
[2018-04-23 04:13] VITALS: BP 110/84
[2018-04-23 06:29] LABS: CALCIUM 8.2 mg/dL (8.5-10.1); CREATININE 0.8 mg/dL (0.7-1.3); MAGNESIUM 1.8 mg/dL (1.8-2.4); POTASSIUM 3.5 mmol/L (3.5-5.1)
[2018-04-23] MEDS: INSULIN LISPRO 300 UNITS/3 ML INSULN.PEN. SQ SCH (08:00)
[2018-04-23] MEDS: metFORMIN XR 500 MG TAB.ER.24H PO SCH (08:29)
[2018-04-23] MEDS: POTASSIUM CHLORIDE 20 MEQ TABLET.ER. PO SCH ×2 (08:29→09:00)
[2018-04-23] MEDS: SPIRONOLACTONE 25 MG TABLET PO SCH (08:30)
[2018-04-23] MEDS: SERTRALINE 25 MG TABLET. PO SCH (08:30)
[2018-04-23] MEDS: ASPIRIN 81 MG TAB.CHEW PO SCH (08:30)
[2018-04-23] MEDS: LISINOPRIL 10 MG TABLET PO SCH (08:30)
[2018-04-23] MEDS: APIXABAN 5 MG TABLET. PO SCH (08:31)
[2018-04-23] MEDS: FUROSEMIDE 40 MG/4 ML VIAL IVP SCH (08:34)
[2018-04-23] MEDS ORDERED: METOPROLOL SUCC 24HR ER 50 MG TAB.ER.24H. PO SCH (09:00)
[2018-04-23 09:16] VITALS: BP 127/82
[2018-04-23] MEDS ORDERED: METO200T46 PO (10:45)
[2018-04-23] MEDS ORDERED: POTA20TA4 PO (10:45)
[2018-04-23] MEDS ORDERED: FURO-68 PO (10:45)
[2018-04-23] MEDS ORDERED: APIX5TAB5 PO (10:45)
--- NOTE | 2018-04-23 10:53 | PDOC ---
PROGRESS NOTES Diagnosis Problem Problems Medical Problems: (1) Dyspnea Status: Acute Assessment Problems Medical Problems: (1) Dyspnea Status: Acute 1. atrial fibrillation with RVR - rate controlled on beta blockers. Eliquis for stroke prophylaxis. 2. acute on chronic systolic heart failure - LVEF 40%. continue diuresis. 3. hypertension - controlled on current med Rx. 4. hyperlipidemia - lipids pending, continue statin 5. hypokalemia - WNL now 6. morbid obesity - weight reduction encouraged 7. tobaccoism - cessation encouraged Continue diuresis. Plan for outpatient follow up when stable and eval for possible stress testing at that time. Subjective feeling better. continues to have swelling. No palpitations or chest pain. breathing improved. Objective Echo - <Conclusion> Technically difficult study. The Left Ventricle is mildly dilated. Left ventricle systolic function is mildly impaired. The Ejection Fraction is estimated at 40%. There is global hypokinesis of the left ventricle. There is moderate concentric left ventricular hypertrophy. The right ventricle is mildly dilated. There is no significant aortic valvular stenosis. Doppler and Color Flow revealed no significant aortic regurgitation. Doppler and Color-flow revealed trace to mild mitral regurgitation. Doppler and Color Flow revealed mild tricuspid regurgitation. Vital Signs Date Time Temp Pulse Resp B/P (MAP) Pulse Ox O2 Delivery O2 Flow Rate FiO2 04/23/18 09:16 76 18 127/82 (97) 94 Room Air 04/22/18 21:00 98.1 04/22/18 10:13 3.0 Intake and Output 04/23/18 07:00 Intake Total 1300 ml Output Total 800 ml Balance 500 ml Intake Oral 1300 ml Output Urine Total 800 ml # Voids 2 Abdomen: Normal bowel sounds, Soft, No tenderness, Other (obese) Heart: Other (IRR, no significant murmurs, clicks or rubs, no gallops.) Extremities: No cyanosis, Other (+3 edema) General: Alert, Oriented X3, Cooperative, No acute distress Lungs: Other (decreased bases) Neuro: Normal speech, Strength at 5/5 X4 ext Psych/Mental Status: Mental status NL, Mood NL Review of Relevant I have reviewed the following items charles (where applicable) has been applied. Labs Laboratory Tests Test 04/21/18 18:05 04/21/18 19:00 04/21/18 21:28 04/22/18 00:10 White Blood Count 7.8 x10^3/uL (4.0-11.0) Red Blood Count 4.63 x10^6/uL (4.30-5.70) Hemoglobin 11.7 g/dL (13.0-17.5) Hematocrit 36.5 % (39.0-53.0) Mean Corpuscular Volume 79 fL (79-100) Mean Corpuscular Hemoglobin 25 pg (25-35) Mean Corpuscular Hemoglobin Concent 32 g/dL (31-37) Red Cell Distribution Width 18.7 % (11.5-14.5) Platelet Count 198 x10^3/uL (140-400) Neutrophils (%) (Auto) 71 % (31-73) Lymphocytes (%) (Auto) 19 % (24-48) Monocytes (%) (Auto) 8 % (0-9) Eosinophils (%) (Auto) 1 % (0-3) Basophils (%) (Auto) 1 % (0-3) Neutrophils # (Auto) 5.5 x10^3uL (1.8-7.7) Lymphocytes # (Auto) 1.5 x10^3/uL (1.0-4.8) Monocytes # (Auto) 0.6 x10^3/uL (0.0-1.1) Eosinophils # (Auto) 0.1 x10^3/uL (0.0-0.7) Basophils # (Auto) 0.0 x10^3/uL (0.0-0.2) Prothrombin Time 12.7 SEC (9.4-11.4) Prothromb Time International Ratio 1.2 (0.9-1.1) Activated Partial Thromboplast Time 26 SEC (23-33) D-Dimer (Juana) 0.96 mg/L (0.00-0.50) Sodium Level 137 mmol/L (136-145) Potassium Level 3.7 mmol/L (3.5-5.1) Chloride Level 102 mmol/L (98-107) Carbon Dioxide Level 31 mmol/L (21-32) Anion Gap 4 (6-14) Blood Urea Nitrogen 12 mg/dL (8-26) Creatinine 1.0 mg/dL (0.7-1.3) Estimated GFR (Cockcroft-Gault) 81.2 Glucose Level 223 mg/dL (70-99) Calcium Level 8.1 mg/dL (8.5-10.1) Magnesium Level 1.8 mg/dL (1.8-2.4) Total Bilirubin 0.7 mg/dL (0.2-1.0) Direct Bilirubin 0.2 mg/dL (0.0-0.2) Aspartate Amino Transf (AST/SGOT) 20 U/L (15-37) Alanine Aminotransferase (ALT/SGPT) 14 U/L (16-63) Alkaline Phosphatase 90 U/L (46-116) Creatine Kinase 46 U/L (39-308) Creatine Kinase MB (Mass) 1.7 ng/mL (0.0-3.6) Creatine Kinase MB Relative Index 3.7 % (0-4) Troponin I Quantitative 0.023 ng/mL (0-0.055) 0.022 ng/mL (0-0.055) DU-Hrp-U-Type Natriuretic Peptide 3070 pg/mL (0-124) Total Protein 6.9 g/dL (6.4-8.2) Albumin 2.9 g/dL (3.4-5.0) Lipase 54 U/L (73-393) Thyroid Stimulating Hormone (TSH) 3.461 uIU/mL (0.358-3.740) Urine Collection Type Unknown Urine Color Yellow Urine Clarity Clear Urine pH 5.5 Urine Specific [place] 1.010 Urine Protein Neg (NEG-TRACE) Urine Glucose (UA) Neg mg/dL (NEG) Urine Ketones (Stick) Neg mg/dL (NEG) Urine Blood Neg (NEG) Urine Nitrite Neg (NEG) Urine Bilirubin Neg (NEG) Urine Urobilinogen Dipstick 0.2 mg/dL (0.2 mg/dL) Urine Leukocyte Esterase Neg (NEG) Urine RBC 1-2 /HPF (0-2) Urine WBC 1-4 /HPF (0-4) Urine Squamous Epithelial Cells Mod /LPF Urine Bacteria 0 /HPF (0-FEW) Urine Hyaline Casts Mod /HPF Urine Mucus Mod /LPF Urine Opiates Screen Neg (NEG) Urine Methadone Screen Neg (NEG) Urine Barbiturates Neg (NEG) Urine Phencyclidine Screen Neg (NEG) Urine Amphetamine/Methamphetamine Neg (NEG) Urine Benzodiazepines Screen Neg (NEG) Urine Cocaine Screen Neg (NEG) Urine Cannabinoids Screen Pos (NEG) Urine Ethyl Alcohol Neg (NEG) Glucose (Fingerstick) 175 mg/dL (70-99) Test 04/22/18 01:40 04/22/18 05:32 04/22/18 11:54 04/22/18 16:37 Nasal Screen MRSA (PCR) Negative (Negative) White Blood Count 8.1 x10^3/uL (4.0-11.0) Red Blood Count 4.46 x10^6/uL (4.30-5.70) Hemoglobin 11.2 g/dL (13.0-17.5) Hematocrit 35.8 % (39.0-53.0) Mean Corpuscular Volume 80 fL (79-100) Mean Corpuscular Hemoglobin 25 pg (25-35) Mean Corpuscular Hemoglobin Concent 31 g/dL (31-37) Red Cell Distribution Width 18.5 % (11.5-14.5) Platelet Count 173 x10^3/uL (140-400) Neutrophils (%) (Auto) 63 % (31-73) Lymphocytes (%) (Auto) 23 % (24-48) Monocytes (%) (Auto) 11 % (0-9) Eosinophils (%) (Auto) 2 % (0-3) Basophils (%) (Auto) 1 % (0-3) Neutrophils # (Auto) 5.1 x10^3uL (1.8-7.7) Lymphocytes # (Auto) 1.9 x10^3/uL (1.0-4.8) Monocytes # (Auto) 0.9 x10^3/uL (0.0-1.1) Eosinophils # (Auto) 0.1 x10^3/uL (0.0-0.7) Basophils # (Auto) 0.1 x10^3/uL (0.0-0.2) Sodium Level 140 mmol/L (136-145) Potassium Level 3.4 mmol/L (3.5-5.1) Chloride Level 103 mmol/L (98-107) Carbon Dioxide Level 33 mmol/L (21-32) Anion Gap 4 (6-14) Blood Urea Nitrogen 15 mg/dL (8-26) Creatinine 0.9 mg/dL (0.7-1.3) Estimated GFR (Cockcroft-Gault) 91.7 Glucose Level 148 mg/dL (70-99) Calcium Level 8.4 mg/dL (8.5-10.1) Glucose (Fingerstick) 162 mg/dL (70-99) 166 mg/dL (70-99) Test 04/22/18 18:05 04/22/18 20:04 04/23/18 05:33 Sodium Level 141 mmol/L (136-145) 141 mmol/L (136-145) Potassium Level 3.7 mmol/L (3.5-5.1) 3.5 mmol/L (3.5-5.1) Chloride Level 102 mmol/L (98-107) 103 mmol/L (98-107) Carbon Dioxide Level 32 mmol/L (21-32) 34 mmol/L (21-32) Anion Gap 7 (6-14) 4 (6-14) Blood Urea Nitrogen 16 mg/dL (8-26) 15 mg/dL (8-26) Creatinine 1.0 mg/dL (0.7-1.3) 0.8 mg/dL (0.7-1.3) Estimated GFR (Cockcroft-Gault) 81.2 105.0 Glucose Level 192 mg/dL (70-99) 74 mg/dL (70-99) Calcium Level 8.1 mg/dL (8.5-10.1) 8.2 mg/dL (8.5-10.1) Glucose (Fingerstick) 151 mg/dL (70-99) Magnesium Level 1.8 mg/dL (1.8-2.4) Medications Current Medications Aspirin (Children'S Aspirin) 324 mg 1X ONCE PO Last administered on 04/21/18at 18:20; Start 04/21/18 at 18:00; Stop 04/21/18 at 18:03; Status DC Furosemide (Lasix) 40 mg 1X ONCE IVP Last administered on 04/21/18at 18:20; Start 04/21/18 at 18:00; Stop 04/21/18 at 18:03; Status DC Enoxaparin Sodium (Lovenox 150mg Syringe) 150 mg Q12H SQ Last administered on at 18:55; Start 04/21/18 at 18:45; Stop 04/21/18 at 20:26; Status DC Metoprolol Tartrate (Lopressor Vial) 5 mg 1X ONCE IV Last administered on 04/21at 18:53; Start 04/21/18 at 18:45; Stop 04/21/18 at 18:46; Status DC Albuterol/ Ipratropium (Duoneb) 3 ml 1X ONCE NEB Last administered on at 19:11; Start 04/21/18 at 19:15; Stop 04/21/18 at 19:16; Status DC Albuterol/ Ipratropium (Duoneb) 3 ml STK-MED ONCE .ROUTE ; Start 04/21/18 at 19: 06; Stop 04/21/18 at 19:07; Status DC Enoxaparin Sodium (Lovenox 150mg Syringe) 150 mg Q12H SQ Last administered on at 06:38; Start 04/22/18 at 07:00; Stop 04/22/18 at 13:30; Status DC Aspirin (Children'S Aspirin) 81 mg DAILY PO Last administered on 04/23/18at 08: 30; Start 04/22/18 at 09:00 Metoprolol Tartrate (Lopressor) 100 mg DAILY PO ; Start 04/22/18 at 09:00; Stop 04/22/18 at 09:00; Status DC Furosemide (Lasix) 40 mg DAILY06 PO Last administered on 04/22/18at 05:46; Start 04/22/18 at 06:00; Stop 04/22/18 at 10:32; Status DC Bumetanide (Bumex) 2 mg DAILY08 PO ; Start 04/22/18 at 08:00; Stop 04/22/18 at 08:00; Status DC Albuterol/ Ipratropium (Duoneb) 3 ml QID NEB Last administered on 04/22/18at 10: 13; Start 04/21/18 at 21:00; Stop 04/22/18 at 16:47; Status DC Metoprolol Tartrate (Lopressor Vial) 5 mg 1X ONCE IV Last administered on 04/21at 20:23; Start 04/21/18 at 20:30; Stop 04/21/18 at 20:31; Status DC Insulin Glargine (Lantus) 35 units QHS SQ Last administered on 04/22/18at 20:10 ; Start 04/21/18 at 22:00 Lisinopril (Prinivil) 10 mg DAILY PO Last administered on 04/23/18at 08:30; Start 04/22/18 at 09:00 Amitriptyline HCl (Elavil) 25 mg QHS PO Last administered on 04/22/18at 20:11; Start 04/21/18 at 22:00 Non-Formulary Medication (Aspirin (Aspir-Low)) 81 mg DAILY PO ; Start 04/22/18 at 09:00; Stop 04/22/18 at 09:00; Status DC Atorvastatin Calcium (Lipitor) 40 mg QHS PO Last administered on 04/22/18at 20: 05; Start 04/21/18 at 22:00 Bumetanide (Bumex) 2 mg BID@0730,1630 PO Last administered on 04/22/18at 07:42; Start 04/22/18 at 07:30; Stop 04/22/18 at 11:18; Status DC Diltiazem HCl (Cardizem 24hr Cd) 360 mg DAILY PO Last administered on at 07:43; Start 04/22/18 at 09:00; Stop 04/22/18 at 13:28; Status DC Metformin HCl (Glucophage Xr) 750 mg DAILYWBKFT PO Last administered on at 08:29; Start 04/22/18 at 08:00 Metoprolol Succinate (Toprol Xl) 100 mg DAILY PO Last administered on at 07:42; Start 04/22/18 at 09:00; Stop 04/22/18 at 13:28; Status DC Sertraline HCl (Zoloft) 25 mg DAILY PO Last administered on 04/23/18at 08:30; Start 04/22/18 at 09:00 Spironolactone (Aldactone) 25 mg DAILY PO Last administered on 04/23/18at 08:30 ; Start 04/22/18 at 09:00 Trazodone HCl (Desyrel) 50 mg PRN QHS PRN PO INSOMNIA; Start 04/21/18 at 22:15 Insulin Human Lispro (HumaLOG) 0-7 UNITS TIDWMEALS SQ Last administered on 04/22at 17:29; Start 04/22/18 at 08:00 Dextrose 12.5 gm PRN Q15MIN PRN IV SEE COMMENTS; Start 04/21/18 at 22:00 Digoxin (Lanoxin) 500 mcg 1X ONCE IV Last administered on 04/21/18at 22:23; Start 04/21/18 at 22:00; Stop 04/21/18 at 22:01; Status DC Metoprolol Succinate (Toprol Xl) 50 mg STK-MED ONCE PO ; Start 04/21/18 at 23:34 ; Stop 04/21/18 at 23:35; Status DC Diltiazem HCl (Cardizem 24hr Cd) 180 mg STK-MED ONCE PO ; Start 04/21/18 at 23: 40; Stop 04/21/18 at 23:42; Status DC Pneumococcal Polyvalent Vaccine (Do NOT chart on this entry -- for MONITORING) 1 each 1X ONCE MC ; Start 04/22/18 at 00:00; Stop 04/22/18 at 00:01; Status UNV Pneumococcal Polyvalent Vaccine (Pneumovax 23) 0.5 ml ONCE ONCE VAX IM Last administered on 04/22/18at 12:21; Start 04/22/18 at 09:00; Stop 04/22/18 at 09:02 ; Status DC Diltiazem HCl (Cardizem) 41 mg 1X ONCE IVP Last administered on 04/22/18at 02: 55; Start 04/22/18 at 02:00; Stop 04/22/18 at 02:01; Status DC Diltiazem HCl 125 mg/Dextrose 125 ml @ 5 mls/hr CONT PRN IV SEE I/O RECORD; Start 04/22/18 at 02:00; Stop 04/22/18 at 02:00; Status DC Diltiazem HCl 125 mg/Sodium Chloride 125 ml @ 5 mls/hr CONT PRN IV HEART RATE; Start 04/22/18 at 02:00; Stop 04/23/18 at 08:50; Status DC Potassium Chloride (Klor-Con) 40 meq DAILYWBKFT PO Last administered on at 08:29; Start 04/22/18 at 08:00; Stop 04/23/18 at 08:38; Status DC Potassium Chloride (Klor-Con) 40 meq 1X ONCE PO Last administered on at 12:08; Start 04/22/18 at 11:00; Stop 04/22/18 at 11:01; Status DC Potassium Chloride (Klor-Con) 20 meq STK-MED ONCE PO ; Start 04/22/18 at 07:43; Stop 04/22/18 at 07:44; Status DC Furosemide (Lasix) 40 mg BID92 IVP Last administered on 04/23/18at 08:34; Start 04/22/18 at 14:00 Apixaban (Eliquis) 5 mg BID PO Last administered on 04/23/18at 08:31; Start at 21:00 Metoprolol Succinate (Toprol Xl) 200 mg DAILY PO Last administered on at 08:34; Start 04/23/18 at 09:00 Potassium Chloride (Klor-Con) 40 meq BID PO Last administered on 04/22/18at 20: 05; Start 04/22/18 at 21:00 Active Scripts Active Reported Metformin HCl ER (Metformin HCl) 500 Mg [id number] 750 Mg PO DAILY Atorvastatin Calcium 40 Mg Tablet 40 Mg PO QHS Lisinopril 10 Mg Tablet 10 Mg PO DAILY Diltiazem 24HR Cd (Diltiazem Hcl) 180 Mg Cap.er.24h 360 Mg PO DAILY Bumetanide 2 Mg Tablet 2 Mg PO BID@0730,1630 Spironolactone 25 Mg Tablet 25 Mg PO DAILY Toprol Xl (Metoprolol Succinate) 100 Mg Tab.er.24h 100 Mg PO DAILY Aspir-Low (Aspirin) 81 Mg Tablet. 81 Mg PO DAILY Aspirin Ec (Aspirin) 81 Mg Tablet. 81 Mg PO Zoloft (Sertraline Hcl) 25 Mg Tablet 25 Mg PO DAILY Trazodone Hcl 50 Mg Tablet 50 Mg PO PRN QHS PRN Amitriptyline Hcl 25 Mg Tablet 25 Mg PO QHS Humalog (Insulin Lispro) 100 Unit/1 Ml Insuln.pen Unit SQ TIDAC Lantus Solostar (Insulin Glargine,Hum.rec.anlog) 100 Unit/1 Ml Insuln.pen 35 Unit SQ QHS Vitals/I & O Vital Sign - Last 24 Hours 04/22/18 04/22/18 04/22/18 04/22/18 11:00 11:00 12:00 13:00 Temp 98.4 Pulse 80 77 68 Resp 18 18 16 B/P (MAP) 124/73 (90) 137/91 (106) 115/75 (88) Pulse Ox 95 95 95 O2 Delivery Room Air Room Air Room Air Room Air 04/22/18 04/22/18 04/22/18 04/22/18 14:00 16:00 16:00 17:21 Temp 97.6 Pulse 62 62 Resp 18 20 22 B/P (MAP) 116/83 (94) 108/80 (89) Pulse Ox 95 95 O2 Delivery Room Air Room Air Room Air 04/22/18 04/22/18 04/22/18 04/22/18 17:25 18:00 19:08 20:23 Pulse 64 66 61 Resp 20 20 20 B/P (MAP) 124/62 (82) 98/70 (79) 113/79 (90) Pulse Ox 94 95 91 O2 Delivery Room Air Room Air Room Air Room Air 04/22/18 04/22/18 04/22/18 04/22/18 20:28 21:00 22:03 23:59 Temp 98.1 Pulse 61 65 69 Resp 20 20 18 B/P (MAP) 113/79 (90) 127/89 (102) 100/61 (74) Pulse Ox 93 92 96 O2 Delivery Room Air Room Air Room Air Room Air 04/23/18 04/23/18 04/23/18 04/23/18 00:05 02:04 04:13 04:13 Pulse 67 76 73 Resp 14 18 22 B/P (MAP) 123/77 (92) 113/82 (92) 110/84 (93) Pulse Ox 93 95 94 O2 Delivery Room Air Room Air Room Air Room Air 04/23/18 04/23/18 04/23/18 04/23/18 08:30 08:30 08:34 09:16 Pulse 76 76 76 Resp 18 B/P (MAP) 127/82 127/82 127/82 (97) Pulse Ox 94 O2 Delivery Room Air Room Air Intake and Output 04/22/18 04/22/18 04/23/18 15:00 23:00 07:00 Intake Total 1300 ml Output Total 800 ml Balance 500 ml NEHA JOHNSON APRN Apr 23, 2018 10:53
--- NOTE | 2018-04-23 18:09 | DS ---
DATE OF DISCHARGE: 04/23/2018 HOSPITAL COURSE: The patient is a 42-year-old male patient who was admitted with worsening shortness of breath, evaluated in the Emergency Room, was found to be in atrial fibrillation with rapid ventricular response. He was initially treated with IV metoprolol and digoxin as well as diltiazem together with IV Lasix and was started on Eliquis for stroke prevention. He was seen by the Cardiology team as his ejection fraction was only 30%. The decision was made to discontinue the Cardizem and increase his metoprolol to 200 mg once a day. He did have an echocardiogram done, which showed that his left ventricular systolic function is mildly impaired with an ejection fraction estimated at 40%. There is global hypokinesis of the left ventricle. There is moderate concentric left ventricular hypertrophy. The right ventricle is mildly dilated. There is no significant aortic valvular stenosis and the Doppler and color flow revealed no significant aortic regurgitation. He was found to have mild mitral regurgitation and mild tricuspid regurgitation. He was treated with IV Lasix and did well and the decision was made to discharge him to follow with the Cardiology team as an outpatient. PHYSICAL EXAMINATION: GENERAL: When I examined today, he was resting slightly propped up in bed, in no apparent respiratory distress, slightly pale, but not jaundiced, cyanosis, or thyromegaly. No jugular venous distension. Marked bilateral lower limb edema. VITAL SIGNS: His heart rate was 76, blood pressure 127/82, temperature was 98, and respiratory rate was 18 and oxygen saturation was 94% on room air. HEAD, EYES, EARS, NOSE AND THROAT: Normocephalic, atraumatic. NECK: Supple. HEART: Showed normal first and second heart sounds with no gallop, rub or murmur. CHEST: Clear to auscultation. No crepitation or rhonchi. ABDOMEN: Distended, soft, nontender. No guarding or rigidity. No organomegaly. Hernial orifice intact. Bowel sounds normal. NEUROLOGIC: He was sleepy, but arousable. All cranial nerves are intact. He moves extremities without difficulty, ambulates without assistance or assistive devices. LABORATORY DATA: As of yesterday showed a white cell count of 8100, hemoglobin 11, hematocrit 36, MCV 80, and platelet count of 173,000. His chemistry showed a serum sodium 141, potassium 3.5, chloride 103, bicarbonate 34, anion gap of 4, BUN 15, creatinine 0.8, estimated GFR was 105 mL per minute. His glucose was 74, calcium was 8.2, magnesium was 1.8. His nasal screen for MRSA by PCR was negative. DISCHARGE MEDICATIONS: He was discharged home to continue on apixaban 5 mg twice a day, furosemide 40 mg twice a day, metoprolol succinate, Toprol-XL 200 mg once a day, potassium chloride 20 mEq twice a day. He was also discharged on amitriptyline 25 mg at bedtime, aspirin 81 mg once a day, atorvastatin 40 mg at bedtime, Lantus insulin 35 units at bedtime and Humalog insulin as insulin sliding scale before meals, lisinopril 10 mg once a day, metformin 850 mg once a day, sertraline or Zoloft 25 mg once a day, spironolactone 25 mg once a day and trazodone 50 mg at bedtime as needed. FINAL DISCHARGE DIAGNOSES: 1. Atrial fibrillation with rapid ventricular response, rate well controlled, well anticoagulated on apixaban. 2. Hypertension, well controlled. 3. Chronic obstructive pulmonary disease, clinically quiescent. 4. Morbid obesity. 5. Obstructive sleep apnea. 6. Congestive heart failure due to left ventricular systolic dysfunction, ejection fraction of only 40%. 7. Hyperlipidemia. ASHLEIGH DOW MD DR: ODILON/britton JOB#: [id number] / [id number]
[2018-04-24 02:11] LABS: HEMOGLOBIN A1C 8.2 % (4.8-5.6)
== END 2018-04-23 12:16 | disposition home or self-care (01) | DRG 308 ==
LOC: ER 17:49 → 1 SOUTH 20:08 → ICU 04-22 01:35
PROVIDERS: ADMIT Internal Medicine; ATTEND Internal Medicine
DX: I48.91 Unspecified atrial fibrillation (principal); I50.23 Acute on chronic systolic (congestive) heart failure; Z68.42 Body mass index [BMI] 45.0-49.9, adult; I42.9 Cardiomyopathy, unspecified; E11.9 Type 2 diabetes mellitus without complications; E66.01 Morbid (severe) obesity due to excess calories; E78.5 Hyperlipidemia, unspecified; E87.6 Hypokalemia; I11.0 Hypertensive heart disease with heart failure; F17.210 Nicotine dependence, cigarettes, uncomplicated; F32.9 Major depressive disorder, single episode, unspecified; G47.33 Obstructive sleep apnea (adult) (pediatric); I08.1 Rheumatic disorders of both mitral and tricuspid valves; F15.90 Other stimulant use, unspecified, uncomplicated; F41.9 Anxiety disorder, unspecified; I25.10 Atherosclerotic heart disease of native coronary artery without angina pectoris; J44.9 Chronic obstructive pulmonary disease, unspecified; Z88.8 Allergy status to other drugs, medicaments and biological substances; Z82.49 Family history of ischemic heart disease and other diseases of the circulatory system; Z83.3 Family history of diabetes mellitus
CPT/HCPCS: 36415; 71046; 80048; 80061; 80076; 80307; 81001; 82553; 82947; 83036; 83690; 83735; 83880; 84443; 84484; 85025; 85379; 85610; 85730; 87641; 90732; 93005; 93306; 93970; 94640; 94799; 96372; 96374; 96375; 99406; G0238; J1160; J1650; J1815; J1940; J3490; J7620; 99285-25; G0479

== ENCOUNTER 2019-05-20 13:02 | Inpatient (IN) | payer SELFPAY ==
[~2019-05-20] VITALS: Ht 180.3 cm; Wt 188.4 kg
[2019-05-20] VITALS (9 sets, daily range): BP systolic 110–134; BP diastolic 73–94
[~2019-05-20 13:02] MED LIST: AMIT25TA PO; APIX5TAB5 PO; ASPI-612 PO; ASPI81TA50 PO; ATOR40TA59 PO; BUME2TAB3 PO; DILT180C29 PO; FURO-68 PO; INSU100I11 SQ; INSU100I13 SQ; LISI10TA2 PO; METF-550 PO; METO100T5 PO; METO200T46 PO; POTA20TA4 PO; SERT25TA PO; SPIR25TA5 PO; TRAZ-120 PO
--- NOTE | 2019-05-20 13:26 | PHYS DOC ---
Past History Past Medical History: A-Fib, Anxiety, CAD, CHF, COPD, Depression, Diabetes, Hypertension Past Surgical History: Other Additional Past Surgical Histo: skin graft bilateral legs Smoking: Cigarettes, Less than 1pk/day Alcohol Use: Occasionally Drug Use: None Adult General Chief Complaint Chief Complaint: SHORTNESS OF BREATH [facility] HPI Patient is a 43-year-old male presents with increasing shortness of breath for the past week. Patient has a history of atrial fibrillation and is supposed to be on rate controlling medicines, blood thinners, and diuretics. Due to financial issues he has not been taking these. He has not followed up with his primary care physician regarding this worsening symptoms. Reports that does get worse with exertion as well as laying down. Better with upright position. Notes that his bilateral lower extremities are swelling. Denies any recent travel or trauma. No chest pain.[] Review of Systems Review of Systems Constitutional: Denies fever or chills [] Eyes: Denies change in visual acuity, redness, or eye pain [] HENT: Denies nasal congestion or sore throat [] Respiratory: Denies cough, see history of present illness[] Cardiovascular: No additional information not addressed in HPI [] GI: Denies abdominal pain, nausea, vomiting, bloody stools or diarrhea [] : Denies dysuria or hematuria [] Musculoskeletal: Denies back pain or joint pain [] Integument: Denies rash or skin lesions [] Neurologic: Denies headache, focal weakness or sensory changes [] Endocrine: Denies polyuria or polydipsia [] All other systems were reviewed and found to be within normal limits, except as documented in this note. Allergies Allergies Allergies Coded Allergies Type Severity Reaction Last Updated Verified ampicillin Allergy Intermediate 04/21/18 Yes ketorolac Allergy Intermediate 04/21/18 Yes Physical Exam Physical Exam Constitutional: Well developed, well nourished, no acute distress, non-toxic appearance. [] HENT: Normocephalic, atraumatic, bilateral external ears normal, oropharynx moist, no oral exudates, nose normal. [] Eyes: PERRLA, EOMI, conjunctiva normal, no discharge. [] Neck: Normal range of motion, no tenderness, supple, no stridor. [] Cardiovascular:Heart rate regular rhythm, no murmur [] Lungs & Thorax: Rales diffusely throughout bilateral lung mireles, no increased work of breathing[] Abdomen: Bowel sounds normal, soft, obese, no tenderness, no masses, no pulsatile masses. [] Skin: Warm, dry, no erythema, no rash. [] Back: No tenderness, no CVA tenderness. [] Extremities: No tenderness, no cyanosis, no clubbing, ROM intact, bilateral lower extremity edema is present. [] Neurologic: Alert and oriented X 3, normal motor function, normal sensory function, no focal deficits noted. [] Psychologic: Affect normal, judgement normal, mood normal. [] Current Patient Data Vital Signs Vital Signs Date Time Temp Pulse Resp B/P (MAP) Pulse Ox O2 Delivery O2 Flow Rate FiO2 05/20/19 13:18 98.4 121 24 95 Room Air EKG EKG EKG shows an irregular rhythm consistent with atrial fibrillation at 150 bpm, axis of 99�, QTC 489 ms, no ST elevations. No acute changes when compared with previous EKG of 04/21/18.[] Radiology/Procedures Radiology/Procedures CHEST PA LATERAL INDICATION: Dyspnea. COMPARISON STUDY: 04/21/2018. FINDINGS: Lungs: Low lung volume. Mild perihilar and basilar opacities. Prominent pulmonary vasculature. Pleura: No pleural effusion or pneumothorax. Heart and Mediastinum: Cardiomegaly. The great vessels of the thorax are normal. Bones and Soft Tissues: The bones and soft tissues are within normal limits. IMPRESSION: Low lung volume with mild perihilar and basilar opacities, which could represent subsegmental atelectasis and/or interstitial edema.[] Course & Med Decision Making Course & Med Decision Making Pertinent Labs and Imaging studies reviewed. (See chart for details) ED course: Patient arrived, was placed in bed, and tolerated exam well. IV access was established. EKG showed atrial fibrillation with rapid ventricular response so diltiazem bolus and infusion was started. Improved his heart rate. He is given diuretics for the congestive heart failure. Due to the elevated d- dimer was transported to and from radiology again for CT scan. Consultation was made with hospitalist service for admission. He was admitted in improved condition Medical decision making: Patient with CHF secondary to A. fib with RVR. Being admitted for diuresis. There is no evidence of a pulmonary embolism. First set of cardiac enzymes are negative.[] Dragon Disclaimer Dragon Disclaimer This electronic medical record was generated, in whole or in part, using a voice recognition dictation system. Departure Departure: Impression: Primary Impression: Atrial fibrillation with RVR Additional Impression: Chronic systolic CHF (congestive heart failure) Disposition: 09 ADMITTED INPATIENT Admitting Physician: Adrian Jasso Condition: IMPROVED Referrals: PCP,NO (PCP) Problem Qualifiers RYNE FERGUSON DO May 20, 2019 13:26
[2019-05-20] MEDS ORDERED: FUROSEMIDE 40 MG/4 ML VIAL IVP ONE (13:30)
[2019-05-20 13:51] LABS: BASO # 0.1 x10^3/uL (0.0-0.2); BASO % 1 % (0-3); EOS # 0.1 x10^3/uL (0.0-0.7); EOS % 1 % (0-3); HEMATOCRIT 35.2 % (39.0-53.0); HEMOGLOBIN 10.7 g/dL (13.0-17.5); LYMPH # 0.8 x10^3/uL (1.0-4.8); LYMPH % 10 % (24-48); MEAN CORPUSCULAR HEMOGLOBIN 23 pg (25-35); MEAN CORPUSCULAR HGB CONC 31 g/dL (31-37); MEAN CORPUSCULAR VOLUME 77 fL (79-100); MONO # 0.9 x10^3/uL (0.0-1.1); MONO % 10 % (0-9); NEUT # 6.6 x10^3uL (1.8-7.7); NEUT % 78 % (31-73); PLATELET COUNT 249 x10^3/uL (140-400); RED CELL DISTRIBUTION WIDTH 19.6 % (11.5-14.5); WHITE BLOOD COUNT 8.4 x10^3/uL (4.0-11.0)
--- NOTE | 2019-05-20 13:51 | RAD ---
CHEST PA LATERAL INDICATION: Dyspnea. COMPARISON STUDY: 04/21/2018. FINDINGS: Lungs: Low lung volume. Mild perihilar and basilar opacities. Prominent pulmonary vasculature. Pleura: No pleural effusion or pneumothorax. Heart and Mediastinum: Cardiomegaly. The great vessels of the thorax are normal. Bones and Soft Tissues: The bones and soft tissues are within normal limits. IMPRESSION: Low lung volume with mild perihilar and basilar opacities, which could represent subsegmental atelectasis and/or interstitial edema. Electronically signed by: Keon Buitrago MD (05/20/2019 1:48 PM) [id number]
--- NOTE | 2019-05-20 13:52 | EKG ---
[address] [address] Test Date: 2019-05-20 Test Time: 13:28:52 Pat Name: OLVIN PIERRE Department: Room: Gender: M [employer]: : 1975 Requested By: RYNE FERGUSON Order Number: [id number] Reading MD: Measurements Intervals [place] Rate: 150 P: GA: QRS: 99 QRSD: 98 T: 29 QT: 308 QTc: 489 Interpretive Statements IRREGULAR RHYTHM, NO P-WAVE FOUND LOW LIMB LEAD VOLTAGE NO SPECIFIC ECG ABNORMALITIES RI6.01 Compared to ECG 04/21/2018 18:29:24 Atrial fibrillation no longer present
[2019-05-20 14:10] LABS: ALBUMIN 3.1 g/dL (3.4-5.0); ALBUMIN/GLOBULIN RATIO 0.8 (1.0-1.7); CALCIUM 9.1 mg/dL (8.5-10.1); CREATININE 0.8 mg/dL (0.7-1.3); GFR 104.5; POTASSIUM 3.2 mmol/L (3.5-5.1); TOTAL BILIRUBIN 1.4 mg/dL (0.2-1.0); TOTAL PROTEIN 7.1 g/dL (6.4-8.2)
[2019-05-20] MEDS ORDERED: dilTIAZem 25 MG/5 ML VIAL IVP ONE (14:15)
[2019-05-20] MEDS ORDERED: dilTIAZem VIAL 125 MG in IV DEXTROSE 5% 100 ML IV PRN (14:15)
[2019-05-20] MEDS ORDERED: IV DEXTROSE 5% 100 ML IV ONE (14:29)
[2019-05-20] MEDS ORDERED: ACETAMINOPHEN 325 MG TABLET PO PRN (14:30)
[2019-05-20] MEDS ORDERED: ONDANSETRON PF 4 MG/2 ML VIAL. IV PRN (14:30)
[2019-05-20] MEDS ORDERED: IOHEXOL 350 MG/ML 100 ML VIAL. IV ONE (14:45)
[2019-05-20] MEDS ORDERED: POTASSIUM CHLORIDE 20 MEQ TABLET.ER. PO ONE (14:45)
--- NOTE | 2019-05-20 15:24 | RAD ---
CT ANGIOGRAPHY CHEST Indication: Elevated d-dimer, atrial fibrillation, shortness of breath. . Technique: After intravenous contrast administration, CT imaging was performed of the chest. MIP reconstructions were obtained. Exposure: One or more of the following individualized dose reduction techniques were utilized for this examination: 1. Automated exposure control 2. Adjustment of the mA and/or kV according to patient size 3. Use of iterative reconstruction technique. Comparison: None FINDINGS: There is extensive swelling as well as stranding within the fat of the subcutaneous chest, particularly on the left and involving the axilla. This finding in combination with body habitus results in image degradation and loss of detail. No evidence of central pulmonary embolism. Evaluation of the segmental and subsegmental pulmonary arteries is suboptimal, no obvious pulmonary embolism is seen. Ascending aorta measures about 4.3 cm transverse diameter compatible with mild aneurysmal dilatation. No evidence of descending aortic aneurysm. No definite aortic dissection although aortic opacification is limited as bolus was timed for the pulmonary arteries. Partially visualized thyroid appears grossly symmetric. Mildly enlarged axillary lymph nodes, left greater than right. Left axillary node measures up to 3 cm diameter. Right axillary node measures up to 1.5 cm. No definite hilar lymph node enlargement. Small mediastinal lymph nodes are seen without definite pathologic enlargement. The heart size is enlarged. No significant pericardial effusion. Coronary artery calcifications. No significant pleural effusion. Dense nodule in the left upper lobe compatible with a calcified granuloma. Noncalcified nodule in the right lower lobe measures 9 mm, series 5, image 75. There are 2 adjacent nodules in the right middle lobe, abutting the minor fissure, image 59. The slightly larger nodule measures 5 mm. No evidence of dense consolidating airspace infiltrate. The trachea and mainstem bronchi are patent. Mild degenerative spondylosis of the spine. No destructive bone lesion is identified. Scans to the upper abdomen are limited by technique as well as severe image degradation due to body habitus. There is fluid or ascites in the upper abdomen. IMPRESSION: 1. Image degradation due to body habitus as well as subcutaneous edema/swelling. 2. No definite pulmonary embolism but suboptimal evaluation of the peripheral branches. 3. Mild aneurysmal dilatation of the ascending aorta, 4.3 cm. 4. Several right pulmonary nodules, largest measures 9 mm. As per revised Fleischner guidelines, consider follow-up CT chest in 3-6 months or PET/CT scan. 5. There appears to be free fluid or ascites in the upper abdomen. 6. Bilateral axillary lymph node enlargement, greater on the left. There is diffuse stranding and swelling in the subcutaneous tissues, greater on the left. Findings could be reactive or due to inflammatory or infectious etiology. The lymph nodes could be further evaluated at the same time as the pulmonary nodule follow-up as recommended above. Electronically signed by: Rodney Tiwari MD (05/20/2019 3:21 PM) [facility]
[2019-05-20] MEDS ORDERED: LISI-334 PO (16:02)
[2019-05-20] MEDS ORDERED: PROAIR RESPICL90 MCG INH (16:02)
[2019-05-20] MEDS ORDERED: SERT100T PO (16:02)
[2019-05-20] MEDS ORDERED: FURO80TA72 PO (16:02)
[2019-05-20] MEDS ORDERED: CARV25TA2 PO (16:02)
[2019-05-20] MEDS ORDERED: DEXTROSE 50% 25 GM / 50ML DISP.SYRIN. IV PRN (17:15)
[2019-05-20] MEDS: NICOTINE 21MG PATCH. TD SCH (17:45)
[2019-05-20] MEDS: METOPROLOL TART IMMED RELEASE 50 MG TABLET PO SCH ×2 (17:46→23:57)
[2019-05-20] MEDS: INSULIN LISPRO 300 UNITS/3 ML INSULN.PEN. SQ SCH (17:47)
[2019-05-20] MEDS ORDERED: MAGNESIUM HYDROXIDE 2,400 MG/30 ML ORAL.SUSP. PO PRN (19:00)
[2019-05-20] MEDS: APIXABAN 5 MG TABLET. PO SCH (20:34)
[2019-05-20] MEDS: NYSTATIN TOPICAL POWDER 15GM BOTTLE. TP SCH (20:35)
[2019-05-20] MEDS: CLOBETASOL EMOLLIENT 0.05% TOPICAL CREAM 15GM TUBE. TP SCH (20:35)
--- NOTE | 2019-05-20 21:38 | HP ---
ADMIT DATE: 05/20/2019 HISTORY OF PRESENT ILLNESS: The patient is a 43-year-old male patient who came to the Emergency Room of [facility] complaining of shortness of breath that has been going on for almost a week. He is known to have history of atrial fibrillation, but he is not on any medication as he was unable to afford them financially. He has been followed up with his primary care physician regarding his worsening symptoms. His symptoms are worse with exertion as well as lying down, better with upright position. Note, his bilateral lower extremities are swollen. He denies any recent travel or trauma. No chest pain. He was investigated in the Emergency Room and was found to have microcytic hypochromic anemia, hypokalemia and markedly elevated beta natriuretic peptide of 2630. His prothrombin time and aPTT were normal. However, D-dimer was high at 1.15. He did have a CT angio of the chest, which basically showed no definite pulmonary embolism. He has mild aneurysmal dilatation of the ascending aorta, severe right pulmonary nodule, largest measures 9 mm and there appears to be free fluid and ascites in the upper abdomen. He has also bilateral axillary lymph node enlargement, greater on the left. There is diffuse stranding and swelling in the subcutaneous tissue, greater on the left, finding could be the reactive due to inflammatory or infectious etiology. Lymph nodes could be further evaluated at the same time ____ followup as recommended. The patient was admitted with atrial fibrillation with rapid ventricular response and was started on Cardizem drip after receiving a bolus of diltiazem. He has also chronic systolic congestive heart failure. PAST MEDICAL HISTORY: Significant for type 2 diabetes mellitus, hypertension, chronic obstructive pulmonary disease, congestive heart failure and atrial fibrillation. He is also morbidly obese with obstructive sleep apnea. He has had history of necrotizing fasciitis involving the inner side of his right thigh about 5 years ago, quite extensive surgical resection. PAST SURGICAL HISTORY: Significant for split thickness skin graft when he was a child and also right-sided inner thigh for necrotizing fasciitis. ALLERGIES: He is allergic to KETOROLAC and AMPICILLIN. MEDICATIONS: He was supposed to be on atorvastatin calcium 40 mg at bedtime, metoprolol succinate 100 mg once a day, diltiazem 180 mg once a day, lisinopril 10 mg once a day, spironolactone 25 mg once a day, aspirin 81 mg once a day, amitriptyline 25 mg at bedtime, sertraline 25 mg daily, trazodone 50 mg at bedtime. He was also on bumetanide 2 mg twice a day, metformin 750 mg daily and Lantus ____ units at bedtime, Humalog insulin 3 times a day before meals. FAMILY HISTORY: He has 7 sisters, all younger and healthy. His father is , but he does not know him very well. Mother is still alive at the age of 64 and lives in [place]. She is also known to have hypertension, hyperlipidemia, type 2 diabetes. SOCIAL HISTORY: He is . He has 1 daughter and 2 sons. He smokes half a pack a day, does not drink alcohol, has been using marijuana. The last time he used the amphetamine was about 6 months ago. 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 PHYSICAL EXAMINATION: GENERAL: On arrival to the Emergency Room, the patient looked well and was clearly slightly tachypneic. There is no pallor, jaundice, cyanosis or thyromegaly. No jugular venous distension. No limb edema. VITAL SIGNS: His heart rate was 121, blood pressure was 141/90, temperature was 98.4, respiratory rate 24 and oxygen saturation was 95%. HEAD, EYES, EARS, NOSE AND THROAT: Showed normocephalic, atraumatic. NECK: Supple. HEART: Showed normal first and second heart sounds. No gallop, rub or murmur. CHEST: Clear to auscultation. No crepitation or rhonchi. ABDOMEN: Distended, soft, nontender. No guarding or rigidity. No organomegaly. All hernial orifices intact. Bowel sounds normal. NEUROLOGIC: He is awake, alert, responding appropriately. All cranial nerves intact. EXTREMITIES: He moves extremities without difficulty. LABORATORY DATA: Showed a white cell count of 8400, hemoglobin 10.7, hematocrit 35.2, MCV 77 and platelet count of 249,000 with normal manual differential. His prothrombin time was 12.8, INR 1.2, aPTT was 27 and his D-dimer was 1.15. His chemistry showed serum sodium 139, potassium 3.2, chloride 100, bicarbonate 34, anion gap of 5, BUN 14, creatinine 0.8, estimated GFR was 104 mL per minute. His glucose was 186, calcium was 9.1, total bilirubin 1.4. AST, ALT, alkaline phosphatase were normal. His Beta-natriuretic peptide was 2630. Total protein 7.1, albumin was 3.1, serum lipase was 127. ASSESSMENT AND PLAN: In summary, this is a 43-year-old male patient who yet again admitted with atrial fibrillation with rapid ventricular response, acute on chronic systolic congestive heart failure. He has a multitude of medical problems including hypertension, hyperlipidemia, type 2 diabetes mellitus, morbid obesity, obstructive sleep apnea. He was started on Cardizem drip and the Cardiology recommended metoprolol 50 mg every 6 hours as well as apixaban.as apixaban. ASHLEIGH DOW MD DR: ODILON/britton JOB#: [id number] / [id number]
[2019-05-21] VITALS (24 sets, daily range): BP systolic 118–149; BP diastolic 70–100
[2019-05-21] MEDS: METOPROLOL TART IMMED RELEASE 50 MG TABLET PO SCH ×4 (05:26→23:26)
[2019-05-21 06:35] LABS: BASO # 0.1 x10^3/uL (0.0-0.2); BASO % 1 % (0-3); EOS # 0.1 x10^3/uL (0.0-0.7); EOS % 2 % (0-3); HEMATOCRIT 35.1 % (39.0-53.0); HEMOGLOBIN 10.7 g/dL (13.0-17.5); LYMPH # 1.2 x10^3/uL (1.0-4.8); LYMPH % 16 % (24-48); MEAN CORPUSCULAR HEMOGLOBIN 23 pg (25-35); MEAN CORPUSCULAR HGB CONC 31 g/dL (31-37); MEAN CORPUSCULAR VOLUME 77 fL (79-100); MONO % 13 % (0-9); NEUT # 5.4 x10^3uL (1.8-7.7); NEUT % 69 % (31-73); PLATELET COUNT 250 x10^3/uL (140-400); RED BLOOD COUNT 4.59 x10^6/uL (4.30-5.70); RED CELL DISTRIBUTION WIDTH 19.8 % (11.5-14.5); WHITE BLOOD COUNT 7.8 x10^3/uL (4.0-11.0)
[2019-05-21 06:41] LABS: ALBUMIN 3.2 g/dL (3.4-5.0); ALBUMIN/GLOBULIN RATIO 0.8 (1.0-1.7); CALCIUM 8.9 mg/dL (8.5-10.1); CREATININE 0.9 mg/dL (0.7-1.3); GFR 91.3; POTASSIUM 3.4 mmol/L (3.5-5.1); TOTAL BILIRUBIN 1.1 mg/dL (0.2-1.0); TOTAL PROTEIN 7.2 g/dL (6.4-8.2)
[2019-05-21] MEDS ORDERED: INSULIN LISPRO 300 UNITS/3 ML INSULN.PEN. SQ SCH (08:00)
[2019-05-21] MEDS ORDERED: POTASSIUM CHLORIDE 20 MEQ TABLET.ER. PO SCH (08:00)
[2019-05-21] MEDS: INSULIN LISPRO 300 UNITS/3 ML INSULN.PEN. SQ SCH ×3 (08:13→17:00)
[2019-05-21] MEDS: CLOBETASOL EMOLLIENT 0.05% TOPICAL CREAM 15GM TUBE. TP SCH ×2 (09:57→20:27)
[2019-05-21] MEDS: APIXABAN 5 MG TABLET. PO SCH ×2 (09:58→20:27)
[2019-05-21] MEDS: NYSTATIN TOPICAL POWDER 15GM BOTTLE. TP SCH ×2 (09:58→20:27)
[2019-05-21] MEDS: NICOTINE 21MG PATCH. TD SCH (09:58)
[2019-05-21] MEDS ORDERED: NON FORMULARY ITEM (Albuterol Sulfate (Proair Respiclick) 1 PUFF) INH PRN (11:00)
[2019-05-21] MEDS ORDERED: ALBUTEROL SULFATE 2.5 MG/3 ML NEBU. NEB PRN (11:30)
[2019-05-21] MEDS ORDERED: IPRATRPIUM/ALBUTEROL 0.5/2.5MG 3 ML NEBU. NEB SCH (12:00)
[2019-05-21] MEDS: IPRATRPIUM/ALBUTEROL 0.5/2.5MG 3 ML NEBU. NEB SCH ×3 (12:33→19:35)
[2019-05-21] MEDS: SPIRONOLACTONE 25 MG TABLET PO SCH (12:34)
[2019-05-21] MEDS: LISINOPRIL 20 MG TABLET PO SCH (12:34)
[2019-05-21] MEDS: FUROSEMIDE 80 MG TABLET PO SCH ×2 (12:34→20:27)
--- NOTE | 2019-05-21 14:24 | PN ---
DATE: 05/21/2019 SUBJECTIVE: Mr. Soto is resting slightly propped up in bed, in no apparent respiratory distress. He was on a Cardizem drip that was discontinued last night around 8:00, he is now on metoprolol 50 mg every 6 hours, was also started on apixaban, continued to have shortness of breath. OBJECTIVE: GENERAL: On examining him, he looked pale. No jaundice, cyanosis, or thyromegaly. No jugular venous distension. No limb edema. VITAL SIGNS: His heart rate was 81, blood pressure was 132/85, temperature was 97, respiratory rate was 16, and oxygen saturation was 93% on 2 liters of oxygen. HEAD, EYES, EARS, NOSE AND THROAT: Showed normocephalic, atraumatic. NECK: Supple. CARDIAC: Normal first and second heart sounds. No gallop or murmur. CHEST: Central trachea, equally reduced expansion, reduced air entry, vesicular sounds with bilateral scattered rhonchi. I could not appreciate any crepitation. ABDOMEN: Huge, distended, soft, nontender. NEUROLOGIC: He is awake, alert, responding appropriately. Cranial nerves intact. He moves extremities without difficulty. His intake and output are incompletely recorded. LABORATORY DATA: His lab work this morning showed serum sodium 140, potassium 3.4, chloride 100, bicarbonate 38, anion gap of 2, BUN 17, creatinine 0.9, estimated GFR was 91 mL per minute. His glucose was 70, calcium was 8.9. Total bilirubin, AST, ALT, alkaline phosphatase were normal. Total protein was 7.2, albumin was 3.2. White cell count of 7800, hemoglobin 10, hematocrit 35, MCV 77 and platelet count of 250,000. ASSESSMENT: 1. Atrial fibrillation with rapid ventricular response. 2. Acute on chronic systolic congestive heart failure. 3. Hypertension. 4. Hyperlipidemia. 5. Type 2 diabetes mellitus. 6. Morbid obesity, obstructive sleep apnea. PLAN: To continue with metoprolol. Continue with apixaban. I will start him on Lasix as well as increase his potassium supplement. ASHLEIGH DOW MD DR: ODILON/britton JOB#: [id number] / [id number]
[2019-05-21 14:31] LABS: BILIRUBIN,URINE SMALL (NEG); CLARITY,URINE HAZY; COLOR,URINE AMBER; GLUCOSE,URINE NEG (NEG); NITRITE,URINE NEG (NEG); UROBILINOGEN,URINE 2 mg/dL (0.2 mg/dL)
[2019-05-21 14:32] LABS: BACTERIA,URINE FEW /HPF (0-FEW); GRANULAR CASTS,URINE OCC /HPF; HYALINE CASTS, URINE OCC /HPF; SQUAMOUS EPITHELIAL CELL,UR OCC /LPF; WBC,URINE RARE /HPF (0-4)
[2019-05-21] MEDS: POTASSIUM CHLORIDE 20 MEQ TABLET.ER. PO SCH ×2 (14:47→20:26)
--- NOTE | 2019-05-21 18:16 | PDOC2 ---
CONSULT Date of Admission DATE: 05/21/19 TIME: 18:07 Reason for Consult: rapid atrial fibrillation Referring Physician: Dr. Jasso Chief Complaint SOB Source: Chart review, Patient Problem List rapid a fib History of Present Illness The patient is a 43 year old male who presented tp the ER with several days of increasing SOB. He was found to be in rapid atrial fib. He was treated with beta blockers and his rate has normalized. He is feeling better today. He patito es chest pain. He has multiple medical problems but does not take his medications as directed. He continue to smoke. He apparently has no primary. Cardiovascular: AFIB, CHF, HTN, hyperipidemia Pulmonary: COPD Endocrine: Diabetes Dermatology: Cellulitis Past Surgical History: Other (debridement of r leg fasciitis) Family History: Heart Disease, Hypertension Smoke: <1 pack per day ALCOHOL: occassional Current Medications Current Medications Furosemide (Lasix) 80 mg 1X ONCE IVP Last administered on 05/20/19at 14:03; Start 05/20/19 at 13:30; Stop 05/20/19 at 13:31; Status DC Diltiazem HCl (Cardizem Iv Push) 20 mg 1X ONCE IVP Last administered on 05/20/19at 15:01; Start 05/20/19 at 14:15; Stop 05/20/19 at 14:16; Status DC Diltiazem HCl 125 mg/Dextrose 125 ml @ 5 mls/hr CONT PRN IV SEE I/O RECORD Last administered on 05/20/19at 15:03; Start 05/20/19 at 14:15 Potassium Chloride (Klor-Con) 40 meq 1X ONCE PO Last administered on 05/20/19at 15:00; Start 05/20/19 at 14:45; Stop 05/20/19 at 14:46; Status DC Dextrose 100 ml @ As Directed STK-MED ONCE IV ; Start 05/20/19 at 14:29; Stop 05/20/19 at 14:30; Status DC Diltiazem HCl (Cardizem) 125 mg STK-MED ONCE IV ; Start 05/20/19 at 14:30; Stop 05/20/19 at 14:31; Status DC Ondansetron HCl (Zofran) 4 mg PRN Q4HRS PRN IV NAUSEA/VOMITING; Start 05/20/19 at 14:30; Stop 05/21/19 at 14:29; Status DC Acetaminophen (Tylenol) 650 mg PRN Q4HRS PRN PO FEVER; Start 05/20/19 at 14:30; Stop 05/21/19 at 14:29; Status DC Iohexol (Omnipaque 350 Mg/ml) 100 ml 1X ONCE IV Last administered on 05/20/19at 14:41; Start 05/20/19 at 14:45; Stop 05/20/19 at 14:46; Status DC Nystatin (Nystop) 1 chio BID TP Last administered on 05/21/19 09:58; Start 05/20/19 at 21:00 Insulin Human Lispro (HumaLOG) 0-9 UNITS TIDWMEALS SQ ; Start 05/21/19 at 08:00; Stop 05/20/19 at 17:35; Status Cancel Dextrose (Dextrose 50%-Water Syringe) 12.5 gm PRN Q15MIN PRN IV SEE COMMENTS; Start 05/20/19 at 17:15 Nicotine (Nicoderm Cq 21mg) 1 patch DAILY TD Last administered on 05/21/19 09:58; Start 05/20/19 at 17:15 Metoprolol Tartrate (Lopressor) 50 mg Q6HRS PO Last administered on 05/21/19 17:20; Start 05/20/19 at 18:00 Apixaban (Eliquis) 5 mg BID PO Last administered on 05/21/19 09:58; Start 05/20/19 at 21:00 Insulin Human Lispro (HumaLOG) 0-9 UNITS TIDWMEALS SQ Last administered on 05/21/19 08:13; Start 05/20/19 at 18:00 Clobetasol Propionate 1 chio BID TP Last administered on 05/21/19 09:57; Start 05/20/19 at 21:00 Magnesium Hydroxide (Milk Of Magnesia) 2,400 mg PRN DAILY PRN PO CONSTIPATION Last administered on 05/20/19 20:37; Start 05/20/19 at 19:00 Potassium Chloride (Klor-Con) 40 meq DAILYWBKFT PO Last administered on 05/21/19at 08:15; Start 05/21/19 at 08:00; Stop 05/21/19 at 11:06; Status DC Lisinopril (Prinivil) 20 mg DAILY PO Last administered on 05/21/19 12:34; Start 05/21/19 at 11:30 Non-Formulary Medication (Albuterol Sulfate (Proair Respiclick)) 1 puff PRN Q6HRS PRN INH FOR ASTHMA; Start 05/21/19 at 11:00; Status UNV Furosemide (Lasix) 80 mg BID PO Last administered on 05/21/19 12:34; Start 05/21/19 at 11:30 Spironolactone (Aldactone) 25 mg DAILY PO Last administered on 05/21/19at 12:34; Start 05/21/19 at 11:30 Potassium Chloride (Klor-Con) 40 meq TID PO Last administered on 05/21/19at 14:47; Start 05/21/19 at 14:00 Albuterol/ Ipratropium (Duoneb) 3 ml RTQID NEB ; Start 05/21/19 at 12:00; Status UNV Albuterol Sulfate (Ventolin) 2.5 mg PRN Q6HRS PRN NEB SHORTNESS OF BREATH; Start 05/21/19 at 11:30 Albuterol/ Ipratropium (Duoneb) 3 ml RTQID NEB Last administered on 05/21/19at 16:10; Start 05/21/19 at 12:00 Active Scripts Active Eliquis (Apixaban) 5 Mg Tab.ds.pk 5 Mg PO BID 30 Days Reported Zoloft (Sertraline Hcl) 100 Mg Tablet 150 Mg PO DAILY Proair Respiclick (Albuterol Sulfate) 90 Mcg Aer.pow.ba 1 Puff INH PRN Q6HRS PRN Lisinopril 20 Mg Tablet 20 Mg PO DAILY Lasix (Furosemide) 80 Mg Tablet 80 Mg PO BID Carvedilol 25 Mg Tablet 37.5 Mg PO BIDWMEALS Spironolactone 25 Mg Tablet 25 Mg PO DAILY Allergies: Coded Allergies: ampicillin (Verified Allergy, Intermediate, 04/21/18) ketorolac (Verified Allergy, Intermediate, 04/21/18) General: YES: Fatigue Respiratory: YES: Shortness of breath, SOB with excertion Cardiovascular: yes: Lt Headedness General: mild distress HEENT: Atraumatic Lungs: Other (decreased breath sounds) Heart: Other (irreg. irreg.) Abdomen: Normal bowel sounds VITALS Vital Signs Date Time Temp Pulse Resp B/P (MAP) Pulse Ox O2 Delivery O2 Flow Rate FiO2 05/21/19 17:28 84 23 136/94 (108) 98 Nasal Cannula 2.0 05/21/19 16:26 97.3 Labs Laboratory Tests Test 05/20/19 13:37 05/20/19 15:47 05/20/19 17:23 05/20/19 18:00 White Blood Count 8.4 x10^3/uL (4.0-11.0) Red Blood Count 4.60 x10^6/uL (4.30-5.70) Hemoglobin 10.7 g/dL (13.0-17.5) Hematocrit 35.2 % (39.0-53.0) Mean Corpuscular Volume 77 fL (79-100) Mean Corpuscular Hemoglobin 23 pg (25-35) Mean Corpuscular Hemoglobin Concent 31 g/dL (31-37) Red Cell Distribution Width 19.6 % (11.5-14.5) Platelet Count 249 x10^3/uL (140-400) Neutrophils (%) (Auto) 78 % (31-73) Lymphocytes (%) (Auto) 10 % (24-48) Monocytes (%) (Auto) 10 % (0-9) Eosinophils (%) (Auto) 1 % (0-3) Basophils (%) (Auto) 1 % (0-3) Neutrophils # (Auto) 6.6 x10^3uL (1.8-7.7) Lymphocytes # (Auto) 0.8 x10^3/uL (1.0-4.8) Monocytes # (Auto) 0.9 x10^3/uL (0.0-1.1) Eosinophils # (Auto) 0.1 x10^3/uL (0.0-0.7) Basophils # (Auto) 0.1 x10^3/uL (0.0-0.2) Prothrombin Time 12.8 SEC (9.4-11.4) Prothromb Time International Ratio 1.2 (0.9-1.1) Activated Partial Thromboplast Time 27 SEC (23-33) D-Dimer (Juana) 1.15 mg/L (0.00-0.50) Sodium Level 139 mmol/L (136-145) Potassium Level 3.2 mmol/L (3.5-5.1) Chloride Level 100 mmol/L (98-107) Carbon Dioxide Level 34 mmol/L (21-32) Anion Gap 5 (6-14) Blood Urea Nitrogen 14 mg/dL (8-26) Creatinine 0.8 mg/dL (0.7-1.3) Estimated GFR (Cockcroft-Gault) 104.5 BUN/Creatinine Ratio 18 (6-20) Glucose Level 286 mg/dL (70-99) Calcium Level 9.1 mg/dL (8.5-10.1) Total Bilirubin 1.4 mg/dL (0.2-1.0) Aspartate Amino Transf (AST/SGOT) 14 U/L (15-37) Alanine Aminotransferase (ALT/SGPT) 13 U/L (16-63) Alkaline Phosphatase 102 U/L (46-116) Troponin I Quantitative 0.021 ng/mL (0-0.055) 0.023 ng/mL (0-0.055) NU-Lfe-J-Type Natriuretic Peptide 2630 pg/mL (0-124) Total Protein 7.1 g/dL (6.4-8.2) Albumin 3.1 g/dL (3.4-5.0) Albumin/Globulin Ratio 0.8 (1.0-1.7) Lipase 127 U/L (73-393) Nasal Screen MRSA (PCR) Positive (Negative) Glucose (Fingerstick) 183 mg/dL (70-99) Test 05/20/19 20:40 05/20/19 21:05 05/21/19 05:45 05/21/19 07:57 Glucose (Fingerstick) 165 mg/dL (70-99) 159 mg/dL (70-99) Troponin I Quantitative 0.027 ng/mL (0-0.055) White Blood Count 7.8 x10^3/uL (4.0-11.0) Red Blood Count 4.59 x10^6/uL (4.30-5.70) Hemoglobin 10.7 g/dL (13.0-17.5) Hematocrit 35.1 % (39.0-53.0) Mean Corpuscular Volume 77 fL (79-100) Mean Corpuscular Hemoglobin 23 pg (25-35) Mean Corpuscular Hemoglobin Concent 31 g/dL (31-37) Red Cell Distribution Width 19.8 % (11.5-14.5) Platelet Count 250 x10^3/uL (140-400) Neutrophils (%) (Auto) 69 % (31-73) Lymphocytes (%) (Auto) 16 % (24-48) Monocytes (%) (Auto) 13 % (0-9) Eosinophils (%) (Auto) 2 % (0-3) Basophils (%) (Auto) 1 % (0-3) Neutrophils # (Auto) 5.4 x10^3uL (1.8-7.7) Lymphocytes # (Auto) 1.2 x10^3/uL (1.0-4.8) Monocytes # (Auto) 1.0 x10^3/uL (0.0-1.1) Eosinophils # (Auto) 0.1 x10^3/uL (0.0-0.7) Basophils # (Auto) 0.1 x10^3/uL (0.0-0.2) Sodium Level 140 mmol/L (136-145) Potassium Level 3.4 mmol/L (3.5-5.1) Chloride Level 100 mmol/L (98-107) Carbon Dioxide Level 38 mmol/L (21-32) Anion Gap 2 (6-14) Blood Urea Nitrogen 17 mg/dL (8-26) Creatinine 0.9 mg/dL (0.7-1.3) Estimated GFR (Cockcroft-Gault) 91.3 BUN/Creatinine Ratio 19 (6-20) Glucose Level 170 mg/dL (70-99) Calcium Level 8.9 mg/dL (8.5-10.1) Magnesium Level 2.0 mg/dL (1.8-2.4) Total Bilirubin 1.1 mg/dL (0.2-1.0) Aspartate Amino Transf (AST/SGOT) 18 U/L (15-37) Alanine Aminotransferase (ALT/SGPT) 14 U/L (16-63) Alkaline Phosphatase 97 U/L (46-116) Total Protein 7.2 g/dL (6.4-8.2) Albumin 3.2 g/dL (3.4-5.0) Albumin/Globulin Ratio 0.8 (1.0-1.7) Test 05/21/19 11:49 05/21/19 13:30 05/21/19 16:46 Glucose (Fingerstick) 148 mg/dL (70-99) 141 mg/dL (70-99) Urine Collection Type Unknown Urine Color Araceli Urine Clarity Hazy Urine pH 5.5 Urine Specific [place] 1.015 Urine Protein 30 mg/dl (NEG-TRACE) Urine Glucose (UA) Neg mg/dL (NEG) Urine Ketones (Stick) Neg mg/dL (NEG) Urine Blood Neg (NEG) Urine Nitrite Neg (NEG) Urine Bilirubin Small (NEG) Urine Urobilinogen Dipstick 2 mg/dL (0.2 mg/dL) Urine Leukocyte Esterase Neg (NEG) Urine RBC 1-2 /HPF (0-2) Urine WBC Rare /HPF (0-4) Urine Squamous Epithelial Cells Occ /LPF Urine Bacteria Few /HPF (0-FEW) Urine Hyaline Casts Occ /HPF Urine Granular Casts Occ /HPF Assessment/Plan 1. Rapid atrial fibrillation. History of a fib with noncompliance. On beta yana with reasonable rate control. Discussed with the patient the importance of medication compliance. He states he is working on getting [employer] assistance. 2. Obesity and probable sleep apnea. Weight loss. 3. Diabetes. As per the primary service. 4. HTN. Weight loss and medical compliance. 5. Heart failure. Rate control. Continue medical treatment. Thank you for allowing us to participate in the care of your patient. FRANCA MOREAU MD May 21, 2019 18:16
[2019-05-22] VITALS (9 sets, daily range): BP systolic 118–153; BP diastolic 74–96
[2019-05-22] MEDS: IPRATRPIUM/ALBUTEROL 0.5/2.5MG 3 ML NEBU. NEB SCH ×4 (05:27→20:19)
[2019-05-22] MEDS: METOPROLOL TART IMMED RELEASE 50 MG TABLET PO SCH ×3 (06:14→18:01)
[2019-05-22 06:29] LABS: BASO # 0.1 x10^3/uL (0.0-0.2); BASO % 1 % (0-3); EOS # 0.1 x10^3/uL (0.0-0.7); EOS % 2 % (0-3); HEMATOCRIT 34.5 % (39.0-53.0); HEMOGLOBIN 10.3 g/dL (13.0-17.5); LYMPH # 0.9 x10^3/uL (1.0-4.8); LYMPH % 14 % (24-48); MEAN CORPUSCULAR HEMOGLOBIN 23 pg (25-35); MEAN CORPUSCULAR HGB CONC 30 g/dL (31-37); MEAN CORPUSCULAR VOLUME 77 fL (79-100); MONO # 0.8 x10^3/uL (0.0-1.1); MONO % 12 % (0-9); NEUT # 4.5 x10^3uL (1.8-7.7); NEUT % 71 % (31-73); PLATELET COUNT 231 x10^3/uL (140-400); RED BLOOD COUNT 4.48 x10^6/uL (4.30-5.70); WHITE BLOOD COUNT 6.4 x10^3/uL (4.0-11.0)
[2019-05-22 06:38] LABS: CALCIUM 8.3 mg/dL (8.5-10.1); GFR 80.8; POTASSIUM 3.9 mmol/L (3.5-5.1)
[2019-05-22] MEDS: FUROSEMIDE 80 MG TABLET PO SCH ×2 (07:39→18:13)
[2019-05-22] MEDS: NICOTINE 21MG PATCH. TD SCH (07:39)
[2019-05-22] MEDS: APIXABAN 5 MG TABLET. PO SCH ×2 (07:39→20:53)
[2019-05-22] MEDS: POTASSIUM CHLORIDE 20 MEQ TABLET.ER. PO SCH ×3 (07:39→20:53)
[2019-05-22] MEDS: SPIRONOLACTONE 25 MG TABLET PO SCH (07:40)
[2019-05-22] MEDS: LISINOPRIL 20 MG TABLET PO SCH (07:40)
[2019-05-22] MEDS: INSULIN LISPRO 300 UNITS/3 ML INSULN.PEN. SQ SCH ×3 (07:42→17:00)
[2019-05-22] MEDS: NYSTATIN TOPICAL POWDER 15GM BOTTLE. TP SCH ×2 (09:00→20:54)
[2019-05-22] MEDS: CLOBETASOL EMOLLIENT 0.05% TOPICAL CREAM 15GM TUBE. TP SCH ×2 (09:00→20:54)
[2019-05-22] MEDS ORDERED: CYCLOBENZAPRINE 10 MG TABLET. ONE (18:05)
[2019-05-22] MEDS: CYCLOBENZAPRINE 10 MG TABLET. PO PRN (18:06)
[2019-05-23] MEDS: METOPROLOL TART IMMED RELEASE 50 MG TABLET PO SCH ×3 (00:16→12:19)
[2019-05-23 00:21] VITALS: BP 135/89
[2019-05-23] MEDS: IPRATRPIUM/ALBUTEROL 0.5/2.5MG 3 ML NEBU. NEB SCH ×2 (05:10→10:45)
[2019-05-23 05:35] VITALS: BP 136/88
[2019-05-23] MEDS: NICOTINE 21MG PATCH. TD SCH (08:12)
[2019-05-23] MEDS: FUROSEMIDE 80 MG TABLET PO SCH (08:13)
[2019-05-23] MEDS: APIXABAN 5 MG TABLET. PO SCH (08:13)
[2019-05-23] MEDS: CYCLOBENZAPRINE 10 MG TABLET. PO PRN (08:13)
[2019-05-23] MEDS: POTASSIUM CHLORIDE 20 MEQ TABLET.ER. PO SCH ×2 (08:13→12:18)
[2019-05-23] MEDS: LISINOPRIL 20 MG TABLET PO SCH (08:13)
[2019-05-23] MEDS: SPIRONOLACTONE 25 MG TABLET PO SCH (08:13)
[2019-05-23] MEDS: NYSTATIN TOPICAL POWDER 15GM BOTTLE. TP SCH (08:14)
[2019-05-23] MEDS: CLOBETASOL EMOLLIENT 0.05% TOPICAL CREAM 15GM TUBE. TP SCH (08:14)
[2019-05-23] MEDS: INSULIN LISPRO 300 UNITS/3 ML INSULN.PEN. SQ SCH ×2 (08:31→12:19)
[2019-05-23] MEDS ORDERED: METO50TA6 PO (09:36)
[2019-05-23] MEDS ORDERED: POTA20TA4 PO (09:37)
[2019-05-23] MEDS ORDERED: METF500T16 PO (09:39)
--- NOTE | 2019-05-23 12:04 | PN ---
DATE: 05/22/2019 SUBJECTIVE: The patient is resting slightly propped up in bed, in no apparent respiratory distress. He is awake and alert. His heart rate is much better controlled, now on metoprolol. Unfortunately, he has no financial means to get his medication. The only option available is to send him to [facility] on Friday. The patient can be downgraded to a telemetry bed in [address] [place] [address] and can be hopefully discharged home on Friday to go to [facility] to get his medication, but according to him is unable even to by the $4 medication from [facility]. He lives with his mother who is also on disability. PHYSICAL EXAMINATION: GENERAL: When I examined him this morning, he looked well and was clearly in no apparent respiratory distress, pale, but no jaundice, cyanosis, or thyromegaly. No jugular venous distension. No lower limb edema. VITAL SIGNS: His heart rate was 90, blood pressure was 146/93, temperature was 97, respiratory rate was 20, and oxygen saturation was 95% on 2 liters of oxygen. HEAD, EYES, EARS, NOSE AND THROAT: Showed normocephalic, atraumatic. NECK: Supple. HEART: Showed normal first and second heart sounds. No gallop or murmur. CHEST: Shows central trachea, equally reduced expansion, reduced air entry ____. No crepitation or rhonchi ABDOMEN: Distended, soft, nontender. NEUROLOGIC: He was awake, alert, responding appropriately. All his cranial nerves are intact. He is theoretically able to walk with a walker. His intake over the last 24 hours was 765, output was 500. LABORATORY DATA: Lab work as of this morning showed a serum sodium 144, potassium 3.9, chloride 102, bicarbonate 38, anion gap of 4, BUN 20, creatinine 1, estimated GFR was 80 mL per minute, his glucose 168 and calcium was 8.3. His white cell count was 6400, hemoglobin 10, hematocrit 34, MCV 77 and platelet count 231,000 with normal manual differential. ASSESSMENT: Atrial fibrillation with rapid ventricular response, now rate controlled on metoprolol 50 mg every 6 hours. Morbid obesity, obstructive sleep apnea, type 2 diabetes mellitus, hypertension seems to be well controlled. Congestive heart failure, continues to be on Lasix. PLAN: To continue with current management. We will discharge him home on Friday for him to be able to get to the [facility] to get his medication. ASHLEIGH DOW MD DR: ODILON/britton JOB#: [id number] / [id number]
[2019-05-23 12:19] VITALS: BP 164/97
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
== END 2019-05-23 13:30 | disposition home or self-care (01) | DRG 308 ==
LOC: ER 13:02 → ICU 14:57
PROVIDERS: ADMIT Internal Medicine; ATTEND Internal Medicine
DX: I48.91 Unspecified atrial fibrillation (principal); I50.23 Acute on chronic systolic (congestive) heart failure; Z68.43 Body mass index [BMI] 50.0-59.9, adult; I11.0 Hypertensive heart disease with heart failure; E11.9 Type 2 diabetes mellitus without complications; E66.01 Morbid (severe) obesity due to excess calories; E78.5 Hyperlipidemia, unspecified; E87.6 Hypokalemia; F17.210 Nicotine dependence, cigarettes, uncomplicated; G47.33 Obstructive sleep apnea (adult) (pediatric); I25.10 Atherosclerotic heart disease of native coronary artery without angina pectoris; F32.9 Major depressive disorder, single episode, unspecified; D50.9 Iron deficiency anemia, unspecified; J44.9 Chronic obstructive pulmonary disease, unspecified; F41.9 Anxiety disorder, unspecified; Z59.9 Problem related to housing and economic circumstances, unspecified; Z82.49 Family history of ischemic heart disease and other diseases of the circulatory system; Z87.39 Personal history of other diseases of the musculoskeletal system and connective tissue; Z91.19 Patient's noncompliance with other medical treatment and regimen; Z83.3 Family history of diabetes mellitus; Z88.8 Allergy status to other drugs, medicaments and biological substances; Z79.899 Other long term (current) drug therapy
CPT/HCPCS: 36415; 71046; 71275; 80048; 80053; 81001; 82947; 83690; 83735; 83880; 84484; 85025; 85379; 85610; 85730; 87641; 93005; 94640; 96365; 96375; 96376; 99406; J1815; J1940; J3490; J7620; Q9967; 99285-25

== ENCOUNTER 2021-08-05 21:22 | Emergency (ER) | payer SELFPAY ==
[~2021-08-05] VITALS: Ht 182.9 cm; Wt 160.8 kg
[~2021-08-05 21:22] MED LIST changes: -ASPI-612 PO; +ASPI-889 PO; +CARV25TA2 PO; +FURO80TA72 PO; +LISI10TA16 PO; -LISI10TA2 PO; +LISI20TA18 PO; -METF-550 PO; +METF-638 PO; +METF500T16 PO; +METO50TA6 PO; +POTA-121 PO; -POTA20TA4 PO; +PROAIR RESPICL90 MCG INH; +SERT100T PO
[2021-08-05] MEDS ORDERED: IV RINGERS SOLUTION,LACTATED 1,000 ML IV ONE (22:00)
[2021-08-05] MEDS ORDERED: VANCOMYCIN 2 GM in IV NORMAL SALINE 500ML 500 ML IV ONE (22:30)
[2021-08-05] MEDS ORDERED: HYDROmorphone PF 2 MG/ML VIAL IVP ONE (22:30)
[2021-08-05] MEDS ORDERED: ONDANSETRON PF 4 MG/2 ML VIAL. IVP ONE (22:30)
[2021-08-05 22:33] LABS: BASO % 0 % (0-3); EOS % 0 % (0-3); HEMATOCRIT 29.2 % (39.0-53.0); HEMOGLOBIN 8.9 g/dL (13.0-17.5); LYMPH # 1.3 x10^3/uL (1.0-4.8); LYMPH % 9 % (24-48); MEAN CORPUSCULAR HEMOGLOBIN 22 pg (25-35); MEAN CORPUSCULAR HGB CONC 31 g/dL (31-37); MEAN CORPUSCULAR VOLUME 73 fL (79-100); MONO % 7 % (0-9); NEUT # 12.2 x10^3uL (1.8-7.7); NEUT % 84 % (31-73); PLATELET COUNT 259 x10^3/uL (140-400); RED BLOOD COUNT 3.99 x10^6/uL (4.30-5.70); RED CELL DISTRIBUTION WIDTH 20.6 % (11.5-14.5); WHITE BLOOD COUNT 14.6 x10^3/uL (4.0-11.0)
[2021-08-05 22:38] LABS: CALCIUM 8.1 mg/dL (8.5-10.1); CREATININE 1.1 mg/dL (0.7-1.3); GFR 71.8; POTASSIUM 4.9 mmol/L (3.5-5.1)
[2021-08-05 22:44] LABS: ALBUMIN 2.4 g/dL (3.4-5.0); ALBUMIN/GLOBULIN RATIO 0.4 (1.0-1.7); MAGNESIUM 2.5 mg/dL (1.8-2.4); TOTAL BILIRUBIN 2.2 mg/dL (0.2-1.0); TOTAL PROTEIN 7.9 g/dL (6.4-8.2)
--- NOTE | 2021-08-05 22:59 | RAD ---
XR CHEST 1V History: Reason: afib / Spl. Instructions: / History: Comparison: May 20, 2019 Findings: Mild ill-defined mid and bibasilar opacities. No pleural effusion. No pneumothorax. Calcified left ap ical pulmonary nodule, unchanged likely related to prior granulomatous disease. Unchanged heart size. Impression: 1. Mild ill-defined mid and bibasilar opacities, may represent atelectasis or developing infiltrates . Electronically signed by: Shaquille Faust DO (08/05/2021 10:57 PM) [facility]
[2021-08-05 23:01] LABS: % BANDS 9 % (0-9); % LYMPHS 12 % (24-48); % MONOS 3 % (0-10); % SEGS 76 % (35-66); PLT ESTIMATE ADEQUATE (ADEQUATE)
[2021-08-05 23:02] LABS: ANISOCYTOSIS SLIGHT; HYPOCHROMIA SLIGHT; MICROCYTOSIS SLIGHT
--- NOTE | 2021-08-06 00:11 | EKG ---
[address] [address] Test Date: 2021-08-05 Test Time: 21:28:35 Pat Name: OLVIN PIERRE Department: Room: Gender: M [employer]: RIO : 1975 Requested By: YOLANDA NORWOOD Order Number: [id number] Reading MD: Lars Ascencio MD Measurements Intervals [place] Rate: 142 P: AR: QRS: -35 QRSD: 104 T: 65 QT: 320 QTc: 492 Interpretive Statements Atrial fibrillation with rapid ventricular response NON-SPECIFIC ST/T CHANGES Electronically Signed On 08-13-2021 12:06:22 CDT by Lars Ascencio MD
[2021-08-06] MEDS ORDERED: VANCOMYCIN 1 GM VIAL. ONE (00:22)
[2021-08-06] MEDS ORDERED: IV NORMAL SALINE 500ML 500 ML ONE (00:22)
[2021-08-06] MEDS ORDERED: CONTRAST GIVEN. MC PRN (00:45)
[2021-08-06] MEDS ORDERED: IV RINGERS SOLUTION,LACTATED 1,000 ML IV ONE ×2 (01:00→02:00)
[2021-08-06] MEDS ORDERED: IOHEXOL 350 MG/ML 100 ML VIAL. IV ONE (01:00)
[2021-08-06] MEDS ORDERED: HYDROmorphone PF 2 MG/ML VIAL IVP ONE ×2 (01:00→02:00)
--- NOTE | 2021-08-06 01:19 | RAD ---
XR HAND_RIGHT 3 VIEWS History: Reason: finger wound/2ND FINGER RED SWOLLEN / Spl. Instructions: / History: Technique: 3 views right hand. Comparison: None. Findings: No dislocation. No acute fracture. Second digit soft tissue swelling. No radiographic evidence of ost eomyelitis. Impression: 1. Second digit soft tissue swelling. No radiographic evidence of osteomyelitis. Electronically signed by: Shaquille Faust DO (08/06/2021 1:17 AM) [facility]
--- NOTE | 2021-08-06 01:28 | RAD ---
CTA CHEST History: Chest pain. Tachycardia. Technique: CT of the chest was performed with intravenous contrast. PE protocol. Maximum intensity pr ojection coronal and sagittal reconstructions were performed. Exposure: One or more of the following individualized dose reduction techniques were utilized for thi s examination: 1. Automated exposure control 2. Adjustment of the mA and/or kV according to patient size 3. Use of iterative reconstruction technique. Comparison: May 20, 2019 Findings: Chest: No pulmonary embolism. Enlarged pulmonary artery measures 4.1 cm, unchanged. Nonopacification of the aorta. No consolidation or pleural effusion. No pneumothorax. Mild bilateral lower lobe montessori toddler teacher ior dependent atelectasis. Calcified pulmonary nodules, likely prior granulomatous disease. Body wall edema. Mildly enlarged bilateral axillary lymph nodes, similar compared to prior. Coronary artery calcifications. Right lower lobe 7 mm pulmonary nodule (series 4 image 96), decreased compared to prior. 2 mm right u pper lobe pulmonary nodule (image 59), not definitely seen previously although may relate to atelecta sis or slice selection. 2 mm right upper lobe posterior pleural-based nodule (image 57), unchanged. 2 mm right upper lobe pulmonary nodule (image 50), unchanged. 2 mm left upper lobe pulmonary nodule (i mage 45), not definitely seen previously although may relate to atelectasis. 4 mm left upper lobe pul monary nodule (image 56), unchanged. 3 mm pulmonary nodules fissure (image 74), unchanged. Additional smaller pulmonary nodules bilaterally. Upper abdomen: Small perihepatic and perisplenic ascites. Cholelithiasis. Bones: No pathologic osseous lesions. Impression: 1. No pulmonary embolism. 2. Diffuse body wall edema. 3. Mild upper abdominal ascites. 4. Mild bilateral axillary lymphadenopathy, similar compared to prior. 5. Multiple small pulmonary nodules, subpleural not well characterized previously. Recommend one-yea r follow-up if high risk. 6. Enlarged pulmonary artery, may indicate pulmonary artery hypertension. Electronically signed by: Shaquille Faust DO (08/06/2021 1:26 AM) [facility]
[2021-08-06] MEDS ORDERED: LABETALOL 20 MG/4 ML DISP.SYRIN. IVP ONE (02:30)
[2021-08-06] MEDS ORDERED: FUROSEMIDE 40 MG/4 ML VIAL IVP ONE (03:00)
[2021-08-06] MEDS ORDERED: NALOXONE 0.4 MG/ML VIAL. ONE ×2 (03:00→06:05)
--- NOTE | 2021-08-06 03:06 | PHYS DOC ---
Past History Past Medical History: A-Fib, Anxiety, CAD, CHF, COPD, Depression, Diabetes, Hypertension Past Surgical History: Other Additional Past Surgical Histo: skin graft bilateral legs Smoking: Cigarettes, Less than 1pk/day Alcohol Use: Occasionally Drug Use: None Adult General Chief Complaint Chief Complaint: MULTIPLE COMPLAINTS HPI HPI Patient is a 45-year-old male with a past medical history significant for morbid obesity sleep apnea, heart failure, CAD, diabetes, and hypertension who presents to the emergency department with multiple complaints. Patient has wounds on his hands and left arm consistent with at least cellulitis and possibly osteomyelitis. Patient also complaining of some shortness of breath and weight gain over the last couple of weeks. States he is getting short of breath as well more than usual. States has been eating and drinking normally for him. States he does seem to be making a little more urine than he usually does but is still yellow. States he is making stool normally with no blood in it. Denies any recent traumas, travels, illnesses, fevers. Review of Systems Review of Systems Review of systems otherwise unremarkable except noted in HPI Current Medications Current Medications Current Medications Medications (Trade) Dose Ordered Sig/Mert Start Time Stop Time Status Last Admin Dose Admin Furosemide (Lasix) 40 mg 1X ONCE 08/06/21 03:00 08/06/21 03:01 DC Hydromorphone HCl (Dilaudid) 1 mg 1X ONCE 08/06/21 02:00 08/06/21 02:01 DC 08/06/21 01:48 1 MG Info (Do NOT chart on this entry -- for MONITORING) 1 each PRN DAILY PRN 08/06/21 00:45 08/08/21 00:44 Iohexol (Omnipaque 350 Mg/ml) 100 ml 1X ONCE 08/06/21 01:00 08/06/21 01:01 DC 08/06/21 00:48 100 ML Labetalol HCl (Normodyne) 20 mg 1X ONCE 08/06/21 02:30 08/06/21 02:31 DC 08/06/21 02:30 20 MG Lactated Ringer's 1,000 ml @ 1,000 mls/hr 1X ONCE 08/06/21 02:00 08/06/21 02:59 DC Levofloxacin/ Dextrose 150 ml @ 100 mls/hr 1X ONCE 08/05/21 22:30 08/05/21 23:59 DC 08/05/21 23:09 100 MLS/HR Naloxone HCl (Narcan) 0.4 mg STK-MED ONCE 08/06/21 03:00 08/06/21 03:00 DC Ondansetron HCl (Zofran) 4 mg 1X ONCE 08/05/21 22:30 08/05/21 22:31 DC 08/05/21 22:25 4 MG Sodium Chloride 500 ml @ As Directed STK-MED ONCE 08/06/21 00:22 08/06/21 00:22 DC Vancomycin HCl (Vancomycin) 1 gm STK-MED ONCE 08/06/21 00:22 08/06/21 00:22 DC Vancomycin HCl 2 gm/Sodium Chloride 500 ml @ 250 mls/hr 1X ONCE 08/05/21 22:30 08/06/21 00:29 DC 08/05/21 22:30 250 MLS/HR Allergies Allergies Allergies Coded Allergies Type Severity Reaction Last Updated Verified ampicillin Allergy Intermediate 04/21/18 Yes ketorolac Allergy Intermediate 04/21/18 Yes I S O L A T I O N *CONTACT* Allergy Unknown 05/24/19 Yes Physical Exam Physical Exam Constitutional: Morbidly obese, acute respiratory distress, appears ill HENT: Normocephalic, atraumatic, dry mucous membranes, no oral exudates, nose normal. [] Eyes: conjunctiva normal, no discharge. [] Neck: Normal range of motion, Cardiovascular: Tachycardia, irregular rhythm, A. fib Lungs & Thorax: Tachypnea, clear breath sounds Abdomen: soft, no tenderness, no masses, no pulsatile masses. [] Skin: Warm, dry, no erythema, no rash. [] Back: No tenderness, no CVA tenderness. [] Extremities: Bilateral lower extremities cool a little mottled but motor and sensory intact. Left upper extremity erythematous and swollen, but neurovascular intact. Right second digit with approximately 2 cm wound which extends into the muscle with a small amount of cortical bone showing Neurologic: Alert and oriented X 3, no focal deficits noted. [] Psychologic: Affect normal, judgement normal, mood normal. [] Current Patient Data Vital Signs Vital Signs Date Time Temp Pulse Resp B/P (MAP) Pulse Ox O2 Delivery O2 Flow Rate FiO2 08/06/21 02:30 123 170/118 08/06/21 01:48 18 Room Air Lab Results Laboratory Tests Test 08/05/21 22:00 08/06/21 01:30 08/06/21 01:45 White Blood Count 14.6 x10^3/uL (4.0-11.0) H Red Blood Count 3.99 x10^6/uL (4.30-5.70) L Hemoglobin 8.9 g/dL (13.0-17.5) L Hematocrit 29.2 % (39.0-53.0) L Mean Corpuscular Volume 73 fL (79-100) L Mean Corpuscular Hemoglobin 22 pg (25-35) L Mean Corpuscular Hemoglobin Concent 31 g/dL (31-37) Red Cell Distribution Width 20.6 % (11.5-14.5) H Platelet Count 259 x10^3/uL (140-400) Neutrophils (%) (Auto) 84 % (31-73) H Lymphocytes (%) (Auto) 9 % (24-48) L Monocytes (%) (Auto) 7 % (0-9) Eosinophils (%) (Auto) 0 % (0-3) Basophils (%) (Auto) 0 % (0-3) Neutrophils # (Auto) 12.2 x10^3uL (1.8-7.7) H Lymphocytes # (Auto) 1.3 x10^3/uL (1.0-4.8) Monocytes # (Auto) 1.0 x10^3/uL (0.0-1.1) Eosinophils # (Auto) 0.0 x10^3/uL (0.0-0.7) Basophils # (Auto) 0.0 x10^3/uL (0.0-0.2) Segmented Neutrophils % 76 % (35-66) H Band Neutrophils % 9 % (0-9) Lymphocytes % 12 % (24-48) L Monocytes % 3 % (0-10) Platelet Estimate Adequate (ADEQUATE) Hypochromasia Slight Anisocytosis Slight Microcytosis Slight Prothrombin Time 15.2 SEC (9.4-11.4) H Prothrombin Time INR 1.5 (0.9-1.1) H Activated Partial Thromboplast Time 31 SEC (23-33) Sodium Level 129 mmol/L (136-145) L Potassium Level 4.9 mmol/L (3.5-5.1) Chloride Level 95 mmol/L (98-107) L Carbon Dioxide Level 31 mmol/L (21-32) Anion Gap 3 (6-14) L Blood Urea Nitrogen 40 mg/dL (8-26) H Creatinine 1.1 mg/dL (0.7-1.3) Estimated GFR (Cockcroft-Gault) 71.8 BUN/Creatinine Ratio 36 (6-20) H Glucose Level 356 mg/dL (70-99) H Lactic Acid Level 2.8 mmol/L (0.4-2.0) H 3.4 mmol/L (0.4-2.0) H Calcium Level 8.1 mg/dL (8.5-10.1) L Magnesium Level 2.5 mg/dL (1.8-2.4) H Total Bilirubin 2.2 mg/dL (0.2-1.0) H Aspartate Amino Transferase (AST) 23 U/L (15-37) Alanine Aminotransferase (ALT) 52 U/L (16-63) Alkaline Phosphatase 209 U/L (46-116) H Troponin I Quantitative 0.111 ng/mL (0-0.055) H Total Protein 7.9 g/dL (6.4-8.2) Albumin 2.4 g/dL (3.4-5.0) L Albumin/Globulin Ratio 0.4 (1.0-1.7) L SARS-CoV-2 Antigen (Rapid) Negative (NEGATIVE) EKG EKG [] Radiology/Procedures Radiology/Procedures [] Heart Score C/O Chest Pain: No Risk Factors: Risk Factors: DM, Current or recent (<one month) smoker, HTN, HLP, family history of CAD, obesity. Risk Scores: Risk Factors: DM, Current or recent (<one month) smoker, HTN, HLP, family hist ory of CAD, obesity. Course & Med Decision Making Course & Med Decision Making Patient is 45-year-old male with multiple significant medical problems who presents appearing ill, with concern for multiple sites of infection, probable exacerbation of heart failure and probably septic Vital signs initially notable for tachycardia, tachypnea and borderline hypoxia. Physical exam noted above. Placed on the monitor with IV access established. Started on IV fluid resuscitation. Placed on CPAP at five. EKG with A. fib/RVR no STEMI. Troponin x2 with mild elevation most likely due to demand ischemia. Patient started on broad-spectrum antibiotics. Started on Lasix. Given pain medicine. CTA of the chest with no PE and diffuse body wall edema and mild upper abdominal ascites and as well as enlarged pulmonary artery suggestive of pulmonary artery hypertension. Right hand x-ray showing second digit soft tissue swelling with no evidence of osteomyelitis, suggest MRI and/or orthopedic surgery consult. Ultrasound of left upper extremity with no evidence of left upper extremity DVT. Inferior vena cava plethoric and no respiratory variation. Patient most likely suffering from sepsis possibly due to more than one site causing decreased cardiac output and probable heart failure exacerbation and anasarca, lower extremity and abdominal fluid retention but no pulmonary edema. Patient critically ill requiring ICU management, pulmonary consult, orthopedic surgeon consult and cardiology consult. Critical care time 2 h as patient was held in the ER awaiting placement. [] Dragon Disclaimer Dragon Disclaimer This electronic medical record was generated, in whole or in part, using a voice recognition dictation system. Departure Departure: Impression: Primary Impression: Sepsis Additional Impressions: Cellulitis Diabetic complication Respiratory distress CHF exacerbation Disposition: 02 SHORT TERM HOSPITAL Admitting Physician: Adrian Jasso Condition: IMPROVED Referrals: PCP,NO (PCP) Problem Qualifiers YOLANDA NORWOOD MD Aug 06, 2021 03:06
--- NOTE | 2021-08-06 03:44 | RAD ---
US DPLX VENOUS EXTREMITY UPPER LT History: Reason: swelling, pain, Spl. Instructions: / History: Comparison: None. Procedure: Color flow Doppler, Doppler spectral analysis, and 2D images are obtained with and without compression in the jugular vein, subclavian vein, axillary vein, brachial vein, radial vein, ulnar v ein, and basilic and cephalic veins. Findings: There is normal color flow, augmentation, and compressibility of all visualized vein segments. No viviana dence of deep venous thrombus is present. Left upper extremity subcutaneous edema. IMPRESSION: 1. No evidence of left upper extremity deep venous thrombosis. Electronically signed by: Shaquille Faust DO (08/06/2021 3:42 AM) [facility]
[2021-08-06] MEDS ORDERED: ALBUMIN HUMAN 5% 250 ML IV ONE (06:00)
[2021-08-06] MEDS: ALBUMIN HUMAN 25% 50 ML IV SCH ×2 (06:16→07:32)
--- NOTE | 2021-08-06 06:18 | EKG ---
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
[2021-08-06 06:49] LABS: CALCIUM 8.1 mg/dL (8.5-10.1); CREATININE 1.4 mg/dL (0.7-1.3); GFR 54.3; POTASSIUM 5.4 mmol/L (3.5-5.1)
[2021-08-06 09:36] VITALS: BP 126/86
== END 2021-08-06 09:45 | disposition short-term general hospital (02) ==
LOC: ER 21:22
DX: A41.9 Sepsis, unspecified organism (principal); J44.9 Chronic obstructive pulmonary disease, unspecified; I11.0 Hypertensive heart disease with heart failure; I50.9 Heart failure, unspecified; E11.9 Type 2 diabetes mellitus without complications; I48.91 Unspecified atrial fibrillation; Z86.73 Personal history of transient ischemic attack (TIA), and cerebral infarction without residual deficits; Z20.822 Contact with and (suspected) exposure to COVID-19
CPT/HCPCS: 36415; 71045; 71275; 73130; 80048; 80053; 82803; 83605; 83735; 84484; 85007; 85025; 85610; 85730; 87426; 93005; 93971; 94660; 96365; 96366; 96367; 96368; 96375; 96376; 99285; C9803; J1170; J1940; J1956; J2405; J3370; J3490; J7040; J7120; P9046; Q9967; U0003